=== PATIENT | female | born 1970 | race American Indian/Alaskan Native ===

== ENCOUNTER 2020-09-12 09:46 | Observation (INO) | payer OTHER ==
[2020-09-12] MEDS ORDERED: SODIUM CHLORIDE 0.9% 500 ML 500 ML IV NR (09:56)
[2020-09-12] MEDS ORDERED: ACETAMINOPHEN 325 MG TAB PO PRN (11:00)
[2020-09-12] MEDS ORDERED: diphenhydrAMINE 25 MG CAP PO PRN (11:00)
[2020-09-12] MEDS ORDERED: DOCUSATE SODIUM 100 MG CAP PO PRN (11:00)
--- NOTE | 2020-09-12 11:21 | History and Physical Report ---
History of Present Illness Date of examination: 09/12/20 Date of admission: 09/12/20 10:25 Chief complaint: low blood count History of present illness: Pt is a 49 y/o female with long h/o anemia, menorrhagia and fibroids that presented to preop evaluation for scheduled lavh in one week. Pt noted to have hgb of 4.9. Pt has had hbg as low as 5(2013) and 2(22986 for which she was also admitted and got transfusion of several units of blood. Pt was to have surgery in 2017 and was lost to f/u in my office and was scheduled in [id number] and again was lost to f/u with dimethylaniline sulfator operator provider at the time.She is not currently bleeding as lmp was 2 weeks ago. Pt today does c/o having some mild dizziness but denies chest, sob, palpitations, fevers or chills. She is admitted for transfusion of 3 units of prbc in preparation for procedure on next week. Again I d/w risk of surgery on next week including but not limited to injury to bladder, bowel, ureter, ovaries, risk for addtional transfusion, infection need for abdominal hysterectomy vial ex lap. She expressed understanding and all questions were addressed and answered. Consents to be signed and placed on the chart. PAPERHANGER History Uterine Surgery (not C/S): negative Operations: positive Endometrial Ablation: Hospitalizations: negative Anesthesia Complications: negative Abnormal PAP: negative Uterine Anomaly: negative NICK Exposure: negative Infertility: negative Infection History HIV Risk Eval: no Personal hx. of genital herpes: no Partner hx. of genital herpes: no Hx of STD: None Active Medications (reviewed today): MULTI VITAMINS () NORVASC TABLET (AMLODIPINE BESYLATE TABS) Current Allergies (reviewed today): No known allergies Past Medical History: Reviewed history from 02/09/2018 and no changes required: Anemia Hypertension Hodgskins lymohoma Past Surgical History: Reviewed history from 02/09/2018 and no changes required: positive Endometrial Ablation: Risk Factors: Smoked Tobacco Use: Never smoker Smokeless Tobacco Use: Never Drug use: no HIV high-risk behavior: no Exercise: no Seatbelt use: 100 % Past History Past Medical History: heart disease (fer out put failure due to severe anemia in 2016), hypertension, blood transfusion, other (lymphoma- many years of remission) Past Surgical History: other (ablation) PAPERHANGER History: other (see hpi) Family/Genetic History: other (see hpi) Social history: no significant social history, Medications and Allergies Allergies Allergy/AdvReac Type Severity Reaction Status Date / Time No Known Allergies Allergy Unverified 09/08/20 12:54 Home Medications Medication Instructions Recorded Confirmed Last Taken Type NIFEdipine [Adalat cc] 90 mg PO DAILY 09/08/20 09/08/20 Unknown History Active Meds: Active Medications Acetaminophen (Tylenol) 650 mg PO Q6H PRN PRN Reason: Pain MILD(1-3)/Fever >100.5/PARKER Diphenhydramine HCl (Benadryl) 25 mg PO Q6H PRN PRN Reason: Itching Docusate Sodium (Colace) 100 mg PO Q12H PRN PRN Reason: Constipation Sodium Chloride (Nacl 0.9% 500 Ml) 500 mls @ 0 mls/hr IV ONCE NR Stop: 09/12/20 23:00 Review of Systems All systems: negative - Vital Signs Vital signs: Vital Signs Temp Pulse Resp BP Pulse Ox 98.1 F 102 H 18 133/77 97 09/12/20 10:50 09/12/20 10:50 09/12/20 10:50 09/12/20 10:50 09/12/20 10:50 Temp Pulse Resp BP Pulse Ox 98.1 F 102 H 18 133/77 97 09/12/20 10:50 09/12/20 10:50 09/12/20 10:50 09/12/20 10:50 09/12/20 10:50 - Physical Exam Cardiovascular: Normal S1, Normal S2 Lungs: Positive: Clear to auscultation, Normal air movement Abdomen: Positive: normal appearance, soft. Negative: distention, guarding Genitourinary (Female): Positive: other (deferred as pt not having bleeding at this time) Results All other labs normal. Assessment and Plan - Patient Problems (1) Fibroid uterus Current Visit: Yes Status: Acute Plan to address problem: scheduled for lavh vs jose manuel in one week transfuse at this time and plan for procedure in one week. (2) Menorrhagia with regular cycle Current Visit: Yes Status: Acute Plan to address problem: -no bleeding at this time -LAVH VS JOSE MANUEL scheduled in one week. Will keep scheduled provided pt remains stable and completes transfusion. (3) Anemia Current Visit: No Status: Acute Qualifiers: Anemia type: iron deficiency Plan to address problem: -3 untis of PRBC ordered -h/h after completion (4) HTN (hypertension) Current Visit: No Status: Chronic Qualifiers: Hypertension type: essential hypertension Qualified Code(s): I10 - Essential (primary) hypertension Plan to address problem: -stable -con't po medications (5) History of hodgkin's lymphoma Current Visit: No Status: Chronic Plan to address problem: -stable in remission
[2020-09-13] MEDS ORDERED: NIFEdipine XL 90 MG TAB PO SCH (10:00)
[2020-09-13] MEDS ORDERED: NON-FORMULARY EACH (Nifedipine [Adalat Cc] 90 MG) PO SCH (10:00)
[2020-09-13 10:58] LABS: Hematocrit 26.1 % (30.3-42.9)
--- NOTE | 2020-09-13 11:20 | Event Note ---
Date: 09/13/20 Pt responded well to transfusion. Will d/c home at this time and plan for sx next week.
--- NOTE | 2020-09-13 11:21 | Discharge Summary ---
Providers - Providers Date of Admission: 09/12/20 10:25 Date of discharge: 09/13/20 Attending physician: KENTON SANCHEZ Primary care physician: ARUNLFO REBOLLEDO Hospitalization Reason for admission: other (symptomatic anemia) Procedure: other (blood transfusion) Hospital course: Pt presented to pre Op evaluation in the surgery center and was noted to have hgb of 4.6 and having symptoms of fatigue and dizziness. She got two units of blood and now hgb is 8 and she states she is feeling much better with resolution of her symptoms. Pt will f/u in office on Saturday 09/15 or Tuesday 09/18 for pre Op appointment for scheduled lavh with BS. Plan of care d/w pt as well as her via telephone and both expressed understanding and expressed no questions. Condition at discharge: Good Disposition: DC-01 TO HOME OR SELFCARE - Discharge Diagnoses (1) Fibroid uterus Status: Acute (2) Menorrhagia with regular cycle Status: Acute (3) Anemia Status: Acute Qualifiers: Anemia type: iron deficiency (4) HTN (hypertension) Status: Chronic Qualifiers: Hypertension type: essential hypertension Qualified Code(s): I10 - Essential (primary) hypertension (5) History of hodgkin's lymphoma Status: Chronic Plan - Provider Discharge Summary Additional instructions: [] Smoking cessation referral if applicable(refer to patient education folder for contact #) [] Refer to [facility] Booklet Call your doctor immediately for: * Fever > 100.5 * Heavy vaginal bleeding ( >1 pad per hour) * Severe persistent headache * Shortness of breath * Reddened, hot, painful area to leg or breast * Drainage or odor from incision. * Keep incision clean and dry at all times and follow doctor's instructions regarding bathing/showering - Follow up plan Follow up: ARNULFO REBOLLEDO MD [Primary Care Provider] - 7 Days Forms: [facility] Discharge Summary
[2020-09-13 11:52] VITALS: BP 147/79
== END 2020-09-13 13:00 | disposition home or self-care (01) ==
LOC: UNDOADMIN 09:46 → 3A 09:46 → OB 10:25
PROVIDERS: ADMIT Obstetrics & Gynecology; ATTEND Obstetrics & Gynecology
DX: D25.9 Leiomyoma of uterus, unspecified (principal); N92.0 Excessive and frequent menstruation with regular cycle; D64.9 Anemia, unspecified; I10 Essential (primary) hypertension; I51.9 Heart disease, unspecified; Z85.71 Personal history of Hodgkin lymphoma
CPT/HCPCS: 36415; 36430; 85014; 85018; 86850; 86900; 86901; 86920; G0378; G0379; P9016

== ENCOUNTER 2020-09-26 07:46 | Observation (INO) | payer OTHER ==
[2020-09-12 08:27] LABS: Mean Corpuscular HGB Conc 27 % (30-34); Red Blood Count 3.11 M/mm3 (3.65-5.03)
--- NOTE | 2020-09-12 08:33 | Anesthesia Consultation ---
Anesthesia Consult and Med Hx Date of service: 09/19/20 - Airway Anesthetic Teeth Evaluation: Chipped ROM Head & Neck: Adequate Mental/Hyoid Distance: Adequate Mallampati Class: Class II Intubation Access Assessment: Probably Good - Pre-Operative Health Status ASA Pre-Surgery Classification: ASA2 Proposed Anesthetic Plan: General - Pulmonary Hx Asthma: No (+2FS) COPD: No Hx Pneumonia: No - Cardiovascular System Hx Hypertension: Yes - Central Nervous System Hx Psychiatric Problems: No - Endocrine Hx End Stage Renal Disease: No Hx Liver Disease: No Hx Non-Insulin Dependent Diabetes: No Hx Thyroid Disease: No - Hematic Hx Anemia: Yes - Other Systems Hx Cancer: Yes (Hodgekin's Disease 1989, received chemo and radiation)
[2020-09-12 08:39] LABS: BUN/Creatinine Ratio 11; Blood Urea Nitrogen 9 mg/dL (7-17); Calcium 9.1 mg/dL (8.4-10.2); Hemolysis Index 0
[2020-09-12 08:40] LABS: Hematocrit 17.1 % (30.3-42.9); Hemoglobin 4.6 gm/dl (10.1-14.3); Mean Corpuscular Volume 55 fl (79-97)
[2020-09-12 08:42] LABS: Red Cell Distribution Width 23.2 % (13.2-15.2)
[2020-09-12 09:25] LABS: Basophils % (Manual) 0 % (0.0-1.8); Total Cells Counted 100
[2020-09-12 09:26] LABS: Anisocytosis 2+; Hypochromasia 3+; Platelet Estimate Consistent w Auto; Tear Drop Cells Rare
[2020-09-12 09:37] LABS: Platelet Count 236 K/mm3 (140-440)
--- NOTE | 2020-09-18 09:35 | History and Physical Report ---
History of Present Illness Date of examination: 09/18/20 Date of admission: 09/19/2020 planned dated of surgery Chief complaint: heavy bleeding, fibroids, anemia History of present illness: Visit Type: Pre-Op CC: pre op. History of Present Illness: pt presents for pre op visit: LAVH, bilat salpingectomy........................................................... ............Tabby Ferguson September 18, 2020 9:42 AM Mask, Patient denies fever, cough, shortness of breath and exposure to COVID-19. Pt here for pre op for the above planned procedure due to fibroid, menorrhagia and h/o severe anemia requiring several transfusions most recently on 09/12/2020. Today pt has no bleeding and reports she feels well after the transfusion. She has no chest pain, dizziness, or sob. All risk/benefits/alternatives were d/w pt and questions were addressed and answered . Consents signed and placed on the chart. I d/w pt that while the LAVH is planned a JOSE MANUEL may be needed due to the size of the fibroids. She expressed understanding and questions were addressed and answered. Vital Signs: Patient Profile: 49 Years Old Female Height: 70 inches Weight: 190 pounds BMI: 27.26 Temp: 98.2 degrees F BP sittin / 86 (left arm) Current Method of Contraception: Abstinence Date of Last Pap Smear: 08/15/2020 Past History : 2 Term Births: 2 Living Children: 2 Para: 2 NUTRITION THERAPIST History Uterine Surgery (not C/S): negative Operations: positive Endometrial Ablation: Hospitalizations: negative Anesthesia Complications: negative Abnormal PAP: negative Uterine Anomaly: negative NICK Exposure: negative Infertility: negative Infection History HIV Risk Eval: no Personal hx. of genital herpes: no Partner hx. of genital herpes: no Hx of STD: None Active Medications: MULTI VITAMINS () NORVASC TABLET (AMLODIPINE BESYLATE TABS) Current Allergies: No known allergies Past Medical History: Anemia Hypertension Hodgskins lymohoma high output heart failure-2016 during severe anemia with hgb of 2.7 Family History Summary: Reviewed history and no changes required: 09/18/2020 General Comments - FH: negative Social History: Reviewed history from 02/09/2018 and no changes required: Patient is Smoking History: Patient has never smoked. no e/t/d Risk Factors: Smoked Tobacco Use: Never smoker Smokeless Tobacco Use: Never Drug use: no HIV high-risk behavior: no Alcohol use: no Exercise: no Seatbelt use: 100 % PAP Smear History: Date of Last PAP Smear: 08/15/2020 [[facility] [Labs In-House] Physical Exam Appearance: well developed, well nourished, no acute distress Other Exams Lungs: no rales, rhonchi, or wheezes Heart: S1, S2, no murmur, rub, or gallop Abdomen: soft, non-tender, no masses, bowel sounds normal Extremities: normal alignment, no joint enlargement, crepitus, masses or tenderness; normal tone and strength Genitourinary Exam Comments: deferred until EUA Past History Past Medical History: other (see hpi) Past Surgical History: other (see hpi) Family/Genetic History: other (see hpi) Social history: no significant social history, , full code - Obstetrical History : 2 Hx # Term Pregnancies: 2 Number of Living Children: 2 Medications and Allergies Allergies Allergy/AdvReac Type Severity Reaction Status Date / Time No Known Allergies Allergy Unverified 09/08/20 12:54 Home Medications Medication Instructions Recorded Confirmed Last Taken Type NIFEdipine [Adalat cc] 90 mg PO DAILY 09/08/20 09/08/20 Unknown History Review of Systems All systems: negative - Vital Signs Vital signs: Vital Signs Temp Pulse Resp BP Pulse Ox 98.2 F 116 H 20 140/71 100 09/12/20 08:10 09/12/20 08:10 09/12/20 08:10 09/12/20 08:10 09/12/20 08:10 Temp Pulse Resp BP Pulse Ox 98.2 F 116 H 20 140/71 100 09/12/20 08:10 09/12/20 08:10 09/12/20 08:10 09/12/20 08:10 09/12/20 08:10 - Physical Exam Cardiovascular: Normal S1, Normal S2 Lungs: Positive: Clear to auscultation Abdomen: Positive: normal appearance, soft. Negative: distention, tenderness, guarding Genitourinary (Female): Positive: other (deferred) Results Result Diagrams: 09/12/20 08:15 09/12/20 08:15 All other labs normal. Assessment and Plan - Patient Problems (1) Anemia Status: Acute Qualifiers: Anemia type: iron deficiency (2) Fibroid uterus Status: Acute (3) Menorrhagia with regular cycle Status: Acute Plan to address problem: - admit and prepare for LAVH with BS -Consents signed and placed on the chart. (4) HTN (hypertension) Status: Chronic Qualifiers: Hypertension type: essential hypertension Qualified Code(s): I10 - Essential (primary) hypertension Plan to address problem: -stable on meds (5) History of hodgkin's lymphoma Status: Chronic Plan to address problem: stable and in remission several years
[~2020-09-26 07:46] MED LIST: ACETAMINOPHEN 500 MG TAB PO SCH; GABAPENTIN 300 MG CAP PO NR; MIDAZOLAM 2 MG/2 ML INJ IV NR; SCOPOLAMINE TRANSDERMAL PATCH 72 HR TD NR
[2020-09-26] MEDS ORDERED: VASOPRESSIN 20 UNIT/1 ML INJ ONE (08:48)
[2020-09-26] MEDS ORDERED: BUPIVACAINE/PF (0.5%) 5 MG/1 ML 30 ML VIAL INFILTRATI ONE ×3 (08:48→13:49)
[2020-09-26] MEDS ORDERED: SODIUM CHLORIDE 0.9% 100 ML ONE (08:48)
[2020-09-26] MEDS ORDERED: HYDROmorphone 1 MG/1 ML INJ IV PRN (08:52)
--- NOTE | 2020-09-26 08:53 | Anesthesia Day of Surgery ---
Anesthesia Day of Surgery - Day of Surgery Patient Examined: Yes Patient H&P Reviewed: Yes Patient is NPO: Yes
[2020-09-26] MEDS: LACTATED RINGERS 1,000 ML IV SCH ×2 (09:05→22:48)
[2020-09-26 09:06] LABS: Mean Corpuscular HGB Conc 29 % (30-34); Red Blood Count 4.25 M/mm3 (3.65-5.03)
[2020-09-26 09:07] LABS: Hematocrit 26.8 % (30.3-42.9); Hemoglobin 7.8 gm/dl (10.1-14.3); Mean Corpuscular Volume 63 fl (79-97)
[2020-09-26 09:08] LABS: Platelet Count 254 K/mm3 (140-440); Red Cell Distribution Width 32.7 % (13.2-15.2)
[2020-09-26] MEDS ORDERED: PHENYLEPHRINE/NS 1,000 MCG/10 ML SYRINGE (OR USE) IV ONE (10:40)
[2020-09-26] MEDS ORDERED: ONDANSETRON 4 MG/2 ML INJ ONE (10:40)
[2020-09-26] MEDS ORDERED: LIDOCAINE PF 100 MG/5 ML (CARDIAC SYRINGE) IV ONE (10:40)
[2020-09-26] MEDS ORDERED: ePHEDrine SULFATE 50 MG/1 ML INJ ONE (10:41)
[2020-09-26] MEDS ORDERED: fentaNYL 100 MCG/2 ML INJ ONE (10:41)
[2020-09-26] MEDS ORDERED: propofoL 200 MG/20 ML VIAL IV ONE (10:41)
[2020-09-26] MEDS ORDERED: NEOSTIGMINE 10MG/10 ML INJ MDV ONE (10:42)
[2020-09-26] MEDS ORDERED: dexAMETHasone 20 MG/5 ML VIAL ONE (10:42)
[2020-09-26] MEDS ORDERED: GLYCOPYRROLATE 0.4 MG/2 ML INJ ONE ×2 (10:42→13:37)
[2020-09-26] MEDS ORDERED: SUCCINYLCHOLINE CHLORIDE 200 MG/10 ML INJ MDV ONE (10:42)
[2020-09-26] MEDS ORDERED: ceFAZolin/STERILE WATER 2 GM/20 ML SYRINGE IV NR (12:30)
[2020-09-26] MEDS ORDERED: SODIUM CHLORIDE 0.9% IRRIG SOLN 2000 ML IR ONE (13:48)
[2020-09-26] MEDS ORDERED: VASOPRESSIN 20 UNIT/1 ML INJ IV ONE (13:49)
[2020-09-26] MEDS ORDERED: SODIUM CHLORIDE 0.9% 100 ML IVPB IV ONE (13:50)
[2020-09-26] MEDS ORDERED: METHYLENE BLUE 50 MG/10 ML AMP ONE (15:03)
[2020-09-26] MEDS ORDERED: HYDROmorphone 1 MG/1 ML INJ ONE (16:27)
[2020-09-26] MEDS ORDERED: ceFAZolin 1 GM VIAL ONE (16:29)
[2020-09-26] MEDS ORDERED: ONDANSETRON 4 MG/2 ML INJ IV PRN (17:09)
[2020-09-26] MEDS ORDERED: MORPHINE 4 MG/1 ML INJ IV PRN (17:09)
[2020-09-26] MEDS ORDERED: KETOROLAC 30 MG/1 ML INJ IV PRN (17:09)
[2020-09-26] MEDS ORDERED: ACETAMINOPHEN 500 MG TAB PO PRN (17:09)
[2020-09-26] MEDS ORDERED: HYDROcodone/ACETAMINOPHEN 5-325 MG TAB PO PRN (17:09)
--- NOTE | 2020-09-26 17:09 | Operative Report ---
Operative Report Operative Report: Date of procedure: 09/26/2020 Pre-operative diagnosis: Menorrhagia Symptomatic anemia Uterine fibroids Post-operative diagnosis: Same Procedure name(s): Laparoscopic assisted vaginal hysterectomy Bilateral salpingectomy Surgeon: Fabienne Palma MD Design Technician: Dr. Patel Anesthesia: General endotracheal anesthesia EBL: 600 mL Urine output: 1 L of light blood-tinged fluid Fluids: 1700 mL Findings: Globular leiomyomatous uterus with several uterine fibroids noted approximately 3 cm pedunculated fibroid Approximately 2 cm simple cyst on the right ovary Otherwise normal ovaries bilaterally normal vagina and cervix Indications: [] Procedure: Patient was taken to the operating room where she was placed under general endotracheal anesthesia. She was then prepped and draped in sterile fashion. It was at this point that the large Entegrion uterine manipulator was placed inside of the uterus after the uterus was sounded to approximately 12 cm. Hauser catheter was also placed at this time. Attention was then turned to the umbilicus in which a supraumbilical incision was made. Under direct visu alization the 5 mm trocar was placed inside the peritoneum the peritoneum was then insufflated. As at this point that the laparoscopic portion of the procedure was performed. 1lateral 5 mm port and 1 8mm midline port were also placed under direct visualization. Using the tripolar instrument the upper pedicles were cauterized and transected to the including round ligament with excellent hemostasis noted bilaterally. Prior to releasing the upper pedicle on the left side patient was noted to have a fibroid in the broad ligament. This fibroid was isolated and dissected and removed with excellent hemostasis noted. The 8 mm port was then extended to allow the placement of the Endo Catch bag. The fibroid was placed inside the Endo Catch bag and removed from the abdominal cavity. Attention was then turned vaginally. A weighted speculum was placed into the vagina and the cervix was grasped with a single-tooth tenaculum 2. The cervix was then injected circumferentially with Pitressin. The cervix was then circumferentially incised with the scalpel and the bladder dissected off of the pubovesical cervical fascia anteriorly with a sponge stick and Metzenbaum scissors. The same procedure was performed posteriorly and the posterior cul-de-sac was entered into sharply without difficulty. At this point a Roger Clamp was placed over the uterosacral ligaments on either side. These were then transected and suture ligated with 0 Vicryl. Hemostasis was assured. The cardinal ligaments were then clamped on both sides transected and suture ligated in similar fashion. The uterine arteries were then serially clamped with Roger clamps transected and suture ligated on both sides. Excellent hemostasis was visualized. After it was clear that the uterus had been comp letely from all pedicles the uterus was removed vaginally intact with cervix intact. The vaginal cuff angles were closed with figure of 8 stitches of 0 Vicryl on both sides. The peritoneum was incorporated in the stitching of the vaginal cuff. A series of interrupted figure of 8 sutures using 0 Vicryl were used to close the entire vaginal cuff. Excellent hemostasis was noted. The vagina was then irrigated copiously. Attention was then turned laparoscopically at which time. Again all pedicles were noted to be hemostatic. All instruments were then removed from the abdomen and the vagina. All gas was released from the abdomen. The abdominal incisions were closed using 4-0 Monocryl. All of the abdominal incisions were injected with Marcaine without epi. Patient tolerated the procedure well sponge lap and needle counts were all correct 3 the patient was taken to the recovery room awake and in stable condition.
[2020-09-26] MEDS ORDERED: SODIUM CHLORIDE 0.9% 1000 ML 1,000 ML ONE (17:12)
--- NOTE | 2020-09-26 18:06 | Post Anesthesia Evaluation ---
- Post Anesthesia Evaluation Patient Participated: Yes Airway Patent: Yes Stable Respiratory Function: Yes Nausea/Vomiting: No Temp > 96.8F: Yes Pain Manageable: Yes Adequeate Hydration: Yes Anesthesia Complications: No
[2020-09-27] MEDS: ceFAZolin/NS 1 GM/50 ML 1 GM/50 ML BAG IV SCH ×2 (00:18→08:57)
[2020-09-27 07:33] LABS: Hematocrit 30.9 % (30.3-42.9); Hemoglobin 9.6 gm/dl (10.1-14.3)
[2020-09-27] MEDS ORDERED: IBUPROFEN 800 MG TAB PO PRN (08:00)
[2020-09-27] MEDS ORDERED: NIFEdipine XL 90 MG TAB PO SCH (10:00)
--- NOTE | 2020-09-27 12:23 | Progress Note ---
Assessment and Plan - Patient Problems (1) Anemia Current Visit: No Status: Acute Qualifiers: Anemia type: iron deficiency (2) Fibroid uterus Current Visit: No Status: Acute (3) Menorrhagia with regular cycle Current Visit: No Status: Acute (4) HTN (hypertension) Current Visit: No Status: Chronic Qualifiers: Hypertension type: essential hypertension Qualified Code(s): I10 - Essentia l (primary) hypertension (5) History of hodgkin's lymphoma Current Visit: No Status: Chronic (6) S/P laparoscopic assisted vaginal hysterectomy (LAVH) Current Visit: Yes Status: Acute Plan to address problem: -doing well -d/c home today-f/u in office next week (7) Status post bilateral salpingectomy Current Visit: Yes Status: Acute Subjective - Subjective Date of service: 09/27/20 Principal diagnosis: POD#1 S/P LAVH WITH BS Interval history: Pt doing well. desires d/c to home today. Findings of sx d/w pt and questions were addressed and answered. Patient reports: appetite normal, voiding normally, pain well controlled, ambulating normally, no dizzy ambulation, no nauseated Objective - Vital Signs Latest vital signs: Vital Signs Temp Pulse Resp BP BP Pulse Ox 09/27/20 08:35 98.2 F 95 H 20 131/75 09/27/20 04:50 98.6 F 87 20 158/93 99 09/27/20 01:07 87 20 154/86 95 09/27/20 00:08 98.8 F 90 20 160/99 99 09/26/20 18:15 97.9 F 83 18 147/82 96 09/26/20 18:00 83 16 140/83 96 09/26/20 17:45 97.8 F 84 16 143/80 96 09/26/20 17:30 78 16 134/75 96 09/26/20 17:25 79 16 129/77 96 09/26/20 17:20 78 16 127/75 97 09/26/20 17:14 97.2 F L 92 H 16 129/83 97 Intake and Output 09/26/20 09/27/20 09/27/20 22:59 06:59 14:59 Intake Total 1700 170 240 Output Total 1980 790 Balance -280 -620 240 Intake: IV 1700 50 ANCEF/NS 1 GM/50 ML 1 gm 50 In 50 ml @ 100 mls/hr IV Q8H ASHLY Rx#:[id number] Lactated Ringers 1,000 ml 1000 @ 100 mls/hr IV DIRECT ASHLY Rx#:[id number] Oral 120 240 Output: Urine 1980 790 Uretheral (Hauser) 780 790 Other: Total, Intake Amount 120 240 Voiding Method Toilet # Voids Void 1 - Exam Cardiovascular: Present: Normal S1, Normal S2 Lungs: Present: Clear to auscultation, Normal air movement Abdomen: Present: normal appearance, soft, normal bowel sounds. Absent: distention, tenderness, guarding Extremities: Present: normal. Absent: tenderness, edema Incision: Present: normal, dry, intact - Labs Labs: Abnormal lab results 09/26/20 09/27/20 Range/Units 08:35 06:56 Hgb 9.6 L (10.1-14.3) gm/dl Crossmatch See Detail
--- NOTE | 2020-09-27 12:24 | Discharge Summary ---
Providers - Providers Date of Admission: 09/26/20 17:09 Date of discharge: 09/27/20 Attending physician: GLENDY SERRANO Primary care physician: ARNULFO REBOLLEDO Hospitalization Reason for admission: other (LAVH with BS) Procedure: other (LAVH WITH BS) Procedure details: SEE OPERATIVE REPORT Incision: normal, dry, intact, other (OPEN TO AIR) Hospital course: Pt admitted for above stated procedures. She had post op course that was not complicated. Pt to be d/c home today with f/u in office in one we. Condition at discharge: Good Disposition: DC-01 TO HOME OR SELFCARE - Discharge Diagnoses (1) Anemia Status: Acute Qualifiers: Anemia type: iron deficiency (2) Fibroid uterus Status: Acute (3) Menorrhagia with regular cycle Status: Acute (4) HTN (hypertension) Status: Chronic Qualifiers: Hypertension type: essential hypertension Qualified Code(s): I10 - Essential (primary) hypertension (5) History of hodgkin's lymphoma Status: Chronic (6) S/P laparoscopic assisted vaginal hysterectomy (LAVH) Status: Acute (7) Status post bilateral salpingectomy Status: Acute Plan - Discharge Medications Prescriptions: Docusate Sodium [Colace] 100 mg PO BID PRN #60 capsule PRN Reason: Constipation Ferrous Sulfate [Feosol 325 MG tab] 325 mg PO QDAY #60 tablet Ibuprofen [Motrin 800 MG tab] 800 mg PO Q8HR PRN #30 tablet PRN Reason: Pain, Moderate (4-6) oxyCODONE /ACETAMINOPHEN [Percocet 5/325] 1 tab PO Q4HR #30 tab - Provider Discharge Summary Activity: routine, no sex for 6 weeks, no heavy lifting 4 weeks Diet: routine Instructions: routine Additional instructions: [] Smoking cessation referral if applicable(refer to patient education folder for contact #) [] Refer to [facility] Booklet Call your doctor immediately for: * Fever > 100.5 * Heavy vaginal bleeding ( >1 pad per hour) * Severe persistent headache * Shortness of breath * Reddened, hot, painful area to leg or breast * Drainage or odor from incision. * Keep incision clean and dry at all times and follow doctor's instructions regarding bathing/showering - Follow up plan Follow up: ARNULFO REBOLLEDO MD [Primary Care Provider] - 7 Days GLENDY SERRANO MD [Staff Physician] - 7 Days
[2020-09-27 13:26] VITALS: BP 134/78
== END 2020-09-27 13:50 | disposition home or self-care (01) ==
LOC: OR 07:46 → OB 17:09
PROVIDERS: ADMIT Obstetrics & Gynecology; ATTEND Obstetrics & Gynecology
DX: N92.0 Excessive and frequent menstruation with regular cycle (principal); D25.9 Leiomyoma of uterus, unspecified; D64.9 Anemia, unspecified; I11.0 Hypertensive heart disease with heart failure; I50.9 Heart failure, unspecified; C81.90 Hodgkin lymphoma, unspecified, unspecified site
CPT/HCPCS: 36415; 58554; 80048; 81025; 85007; 85014; 85018; 85025; 85027; 86850; 86900; 86901; 86920; 88302; 88307; 96361; 96365; 96366; A4217; G0378; J0330; J0690; J1100; J1170; J2001; J2250; J2405; J2704; J2710; J3010; J7030; J7120; P9016; J2370; Q9968

== ENCOUNTER 2022-02-01 13:08 | Inpatient (IN) | payer BC, OTHER ==
--- NOTE | 2022-02-01 13:36 | Event Note ---
ED Screening Note Date of service: 02/01/22 Time: 13:33 ED Screening Note: 51-year-old black female who was recently diagnosed in the last month with CHF presents to the emergency department with worsening swelling and shortness of breath. She states that she takes Lasix at home and dose was increased a few days ago by her primary care provider but she has not had any improvement. She presents with swelling to bilateral lower extremities and abdomen along with increasing shortness of breath and intermittent chest pain. She states that she is scheduled to see [facility] for management of CHF but has not had her first appointment there yet This initial assessment/diagnostic orders/clinical plan/treatment(s) is/are subject to change based on patients health status, clinical progression and re- assessment by fellow clinical providers in the ED. Further treatment and workup at subsequent clinical providers discretion. Patient/guardian urged not to elope from the ED as their condition may be serious if not clinically assessed and managed. Initial orders include: CBC, CMP, BNP, troponin, chest x-ray, and EKG
--- NOTE | 2022-02-01 14:07 | XRay Report ---
CHEST 2 VIEWS INDICATION: sob. COMPARISON: 04/25/2016 FINDINGS: Support devices: None. Heart: Mild cardiomegaly. Lungs/pleura: No acute air space or interstitial disease. No pleural effusion or pneumothorax. Additional findings: Mild thoracolumbar scoliosis. IMPRESSION: Mild cardiomegaly. Lungs clear. Signer Name: William Schaefer Jr, MD Signed: 02/01/2022 2:03 PM Workstation Name: [id number]
[2022-02-01 14:47] LABS: Basophils # (Auto) 0.1 K/mm3 (0.0-0.1); Basophils % (Auto) 1.9 % (0.0-1.8); Eosinophils # (Auto) 0.1 K/mm3 (0.0-0.4); Eosinophils % (Auto) 1.9 % (0.0-4.3); Lymphocytes # (Auto) 1.6 K/mm3 (1.2-5.4); Mean Corpuscular HGB Conc 30 % (30-34); Mean Corpuscular Volume 79 fl (79-97); Monocytes # (Auto) 0.8 K/mm3 (0.0-0.8); Monocytes % (Auto) 12.4 % (0.0-7.3); Platelet Count 220 K/mm3 (140-440); Red Blood Count 5.01 M/mm3 (3.65-5.03)
[2022-02-01 15:09] LABS: Alanine Aminotransferase 76 units/L (7-56); Albumin 3.2 g/dL (3.9-5); BUN/Creatinine Ratio 15; Blood Urea Nitrogen 23 mg/dL (7-17); Calcium 9.2 mg/dL (8.4-10.2); Hematocrit 39.4 % (30.3-42.9); Hemoglobin 11.9 gm/dl (10.1-14.3); Hemolysis Index 18; Red Cell Distribution Width 22.4 % (13.2-15.2)
[2022-02-01] MEDS ORDERED: FUROSEMIDE 40 MG/4 ML INJ IV ONE (16:12)
--- NOTE | 2022-02-01 16:22 | Emergency Department Report ---
HPI - General Chief Complaint: Dyspnea/Respdistress Time Seen by Provider: 02/01/22 16:01 - HPI HPI: Reassessment 6 The patient is a 51-year-old female present with a chief complaint of shortness of breath/dyspnea on exertion. Patient has a history of CHF and states for the past month she has had worsening shortness of breath and dyspnea on exertion. Patient denies having chest pain but states she has had bilateral lower extremity edema for the same amount of time. 1 week ago the patient states she saw her primary physician who increased her Lasix from 40 mg daily to twice daily. Patient states she has been taking her Lasix as prescribed but continues to have dyspnea on exertion. The patient states she had to reschedule her first appointment with her manager orange at [facility] and has not seen them yet ED Past Medical Hx - Past Medical History Hx Hypertension: Yes Hx Congestive Heart Failure: Yes Additional medical history: hodgkin disease-endometrois anemia - Surgical History Additional Surgical History: Hysterectomy - Family History Family history: no significant - Social History Smoking Status: Never Smoker Substance Use Type: None (Denies illicit drug use) - Medications Home Medications: Home Medications Medication Instructions Recorded Confirmed Last Taken Type NIFEdipine [Adalat cc] 90 mg PO DAILY 09/08/20 09/26/20 09/26/20 05:30 History Docusate Sodium [Colace] 100 mg PO BID PRN #60 capsule 09/26/20 Unknown Rx Ferrous Sulfate [Feosol 325 MG tab] 325 mg PO QDAY #60 tablet 09/26/20 Unknown Rx Ibuprofen [Motrin 800 MG tab] 800 mg PO Q8HR PRN #30 tablet 09/26/20 Unknown Rx oxyCODONE /ACETAMINOPHEN [Percocet 1 tab PO Q4HR #30 tab 09/26/20 Unknown Rx 5/325] ED Review of Systems ROS: Stated complaint: SOB/FLUID IN FEET/KNEES/LEGS Other details as noted in HPI Constitutional: no symptoms reported Eyes: denies: eye pain ENT: denies: throat pain Respiratory: shortness of breath, SOB with exertion Cardiovascular: dyspnea on exertion. denies: chest pain Endocrine: no symptoms reported Genitourinary: denies: dysuria Musculoskeletal: denies: back pain Neurological: denies: headache Hematological/Lymphatic: other (Bilateral lower extremity edema) Physical Exam - Physical Exam Vital Signs: Vital Signs 02/01/22 13:17 Temperature 98.7 F Pulse Rate 90 Respiratory 20 Rate O2 Sat by Pulse 96 Oximetry Physical Exam: GENERAL: The patient is well-developed well-nourished female lying in chair not appearing to be in acute distress. [] HEENT: Normocephalic. Atraumatic. Extraocular motions are intact. Patient has moist mucous membranes. NECK: Supple. Trachea midline CHEST/LUNGS: Clear to auscultation. There is no respiratory distress noted. HEART/CARDIOVASCULAR: Regular. There is no tachycardia. There is no gallop rub or murmur. ABDOMEN: Abdomen is soft, nontender. Patient has normal bowel sounds. There is no abdominal distention. SKIN: There is no rash. There is 2+ bilateral lower extremity pitting edema. There is no diaphoresis. NEURO: The patient is awake, alert, and oriented. The patient is cooperative. The patient has no focal neurologic deficits. The patient has normal speech. GCS 15 MUSCULOSKELETAL:There is no evidence of acute injury. ED Course Vital Signs 02/01/22 13:17 Temperature 98.7 F Pulse Rate 90 Respiratory 20 Rate O2 Sat by Pulse 96 Oximetry ED Medical Decision Making - Lab Data Result diagrams: 02/01/22 14:02 02/01/22 14:02 Laboratory Tests 02/01/22 02/01/22 14:02 14:02 WBC 6.3 RBC 5.01 Hgb 11.9 Hct 39.4 MCV 79 MCH 24 L MCHC 30 RDW 22.4 H Plt Count 220 Lymph % (Auto) 26.0 [place] % (Auto) 12.4 H Eos % (Auto) 1.9 Baso % (Auto) 1.9 H Lymph # (Auto) 1.6 [place] # (Auto) 0.8 Eos # (Auto) 0.1 Baso # (Auto) 0.1 Seg Neutrophils % 57.8 Seg Neutrophils # 3.6 Sodium 143 Potassium 3.6 Chloride 104.9 Carbon Dioxide 25 Anion Gap 17 BUN 23 H Creatinine 1.5 H Estimated GFR 44 BUN/Creatinine Ratio 15 Glucose 109 H Calcium 9.2 Total Bilirubin 0.90 AST 65 H ALT 76 H Alkaline Phosphatase 119 Troponin T < 0.010 NT-Pro-B Natriuret Pep 4482 H Total Protein 5.7 L Albumin 3.2 L Albumin/Globulin Ratio 1.3 - EKG Data -: EKG Interpreted by Hi EKG shows normal: sinus rhythm, axis Rate: normal (90 bpm) - EKG Data Interpretation: nonspecific ST-T wave dina (Flattened T waves inferiorly) - Radiology Data Radiology results: report reviewed (Chest x-ray), image reviewed (Chest x-ray) interpreted by me: Chest [id number]. No focal infiltrates, no pneumothorax [facility] [address] [place] [address] XRay Report Signed Patient: ZORA MORALES MR#: [id number] : 1970 Acct:[id number] Age/Sex: 51 / F ADM Date: 02/01/22 Loc: ED Attendheena orourke Dr: Ordering Physician: JUAN DAVID ADAMES Date of Service: 02/01/22 Procedure(s): XR chest routine 2V Accession Number(s): [id number] cc: JUAN DAVID ADAMES Fluoro Time In Minutes: CHEST 2 VIEWS INDICATION: sob. COMPARISON: 04/25/2016 FINDINGS: Support devices: None. Heart: Mild cardiomegaly. Lungs/pleura: No acute air space or interstitial disease. No pleural effusion or pneumothorax. Additional findings: Mild thoracolumbar scoliosis. IMPRESSION: Mild cardiomegaly. Lungs clear. Signer Name: William Schaefer Jr, MD Signed: 02/01/2022 2:03 PM Workstation Name: [id number] Transcribed By: TTR Dictated By: WILLIAM SCHAEFER JR, MD Electronically Authenticated By: WILLIAM SCHAEFER JR, MD Signed Date/Time: 02/01/22 1403 DD/ 1401 TD/TT: - Differential Diagnosis CHF exacerbation Critical care attestation.: If time is entered above; I have spent that time in minutes in the direct care of this critically ill patient, excluding procedure time. ED Disposition Clinical Impression: CHF exacerbation, Failure of outpatient treatment Disposition: ADMITTED INPATIENT Is pt being admited?: Yes Does the pt Need Aspirin: No Condition: Fair Referrals: ARNULFO REBOLLEDO MD [Primary Care Provider] - 3-5 Days Time of Disposition: 16:40 (Hospitalist notified (Dr. Easley))
[2022-02-01] MEDS ORDERED: HYDROmorphone 1 MG/1 ML INJ IV PRN (16:41)
[2022-02-01] MEDS ORDERED: ALBUTEROL 2.5 MG/3 ML NEBU IH PRN (16:41)
[2022-02-01] MEDS ORDERED: ONDANSETRON 4 MG/2 ML INJ IV PRN (16:41)
[2022-02-01] MEDS ORDERED: ACETAMINOPHEN 325 MG TAB PO PRN (16:41)
--- NOTE | 2022-02-01 16:41 | History and Physical Report ---
History of Present Illness Chief complaint: I cannot breathe and my legs are swollen History of present illness: 51 YO Female with HTN, CHF, Hodgkins Disease, Anemia of Chronic Disease presents ED for evaluation. Patient reports "it is hard to breathe and I am swollen". Patient states that she has experienced shortness of breath, and leg edema over the past 2 weeks with worsening symptoms over the past 1 week. P atient acknowledges orthopnea, paroxysmal nocturnal dyspnea, decreased exercise tolerance, dyspnea on exertion, as well as dyspnea at rest, as well as subjective weight gain over the past 1 week. Patient was seen and evaluated by her primary care physician and treated with diuretic therapy. Patient states that she has experienced worsening symptoms while compliant with therapy. Patient failed outpatient therapy. Patient transported to [facility] via private vehicle for further care and evaluation of the aforementioned symptoms. The patient was seen and evaluated emergency department. All lab and imaging studies reviewed. Patient found to have a pulse oximetry of 89% on room air with exertion which is consistent with acute hypoxemic respiratory failure. Patient also found to have clinical symptoms consistent with CHF decompensation. Patient placed on noninvasive positive pressure ventilation and admitted to telemetry and initiated on CHF protocol. Patient has fever, chills, chest pain, palpitation, skin rash, recent contact, known exposure to COVID-19. Prior admission on 04/25/2016 reviewed. All medication listed at time of admission has been reconciled. Advanced care planning conducted in ED. Cardiology team consulted in ED. Past History Past Medical History: cancer, heart failure, other (See HPI) Past Surgical History: hysterectomy Social history: , lives with family. denies: smoking, alcohol abuse, prescription drug abuse Family history: diabetes, hypertension Medications and Allergies Allergies Allergy/AdvReac Type Severity Reaction Status Date / Time No Known Allergies Allergy Unverified 09/08/20 12:54 Home Medications Medication Instructions Recorded Confirmed Last Taken Type NIFEdipine [Adalat cc] 90 mg PO DAILY 09/08/20 09/26/20 09/26/20 05:30 History Docusate Sodium [Colace] 100 mg PO BID PRN #60 capsule 09/26/20 Unknown Rx Ferrous Sulfate [Feosol 325 MG tab] 325 mg PO QDAY #60 tablet 09/26/20 Unknown Rx Ibuprofen [Motrin 800 MG tab] 800 mg PO Q8HR PRN #30 tablet 09/26/20 Unknown Rx oxyCODONE /ACETAMINOPHEN [Percocet 1 tab PO Q4HR #30 tab 09/26/20 Unknown Rx 5/325] Review of Systems Constitutional: weight gain, no fever, no chills, no sweats Exam - Constitutional Vitals: Temp Pulse Resp BP Pulse Ox 98.7 F 90 20 96 02/01/22 13:17 02/01/22 13:17 02/01/22 13:17 02/01/22 13:17 General appearance: Present: mild distress - EENT Eyes: Present: PERRL ENT: hearing intact, clear oral mucosa - Neck Neck: Present: supple, normal ROM - Respiratory Respiratory effort: labored, accessory muscle use Respiratory: bilateral: diminished, rales - Cardiovascular Heart Sounds: Present: S1 & S2. Absent: rub, click - Extremities Extremities: pulses symmetrical Extremity abnormal: edema Peripheral Pulses: within normal limits - Abdominal General gastrointestinal: Present: soft, non-tender, non-distended, normal bowel sounds Female genitourinary: Present: normal - Integumentary Integumentary: Present: clear, warm, dry - Musculoskeletal Musculoskeletal: gait normal, strength equal bilaterally - Psychiatric Psychiatric: appropriate mood/affect, intact judgment & insight - Neurologic Neurologic: CNII-XII intact, moves all extremities HEART Score - HEART Score Troponin: Troponin T < 0.010 ng/mL (0.00-0.029) 02/01/22 14:02 Results - Labs CBC & Chem 7: 02/01/22 14:02 02/01/22 14:02 Labs: Abnormal lab results 02/01/22 02/01/22 Range/Units 14:02 14:02 MCH 24 L (28-32) pg RDW 22.4 H (13.2-15.2) % [place] % (Auto) 12.4 H (0.0-7.3) % Baso % (Auto) 1.9 H (0.0-1.8) % BUN 23 H (7-17) mg/dL Creatinine 1.5 H (0.6-1.2) mg/dL Glucose 109 H (65-100) mg/dL AST 65 H (5-40) units/L ALT 76 H (7-56) units/L NT-Pro-B Natriuret Pep 4482 H (0-900) pg/mL Total Protein 5.7 L (6.3-8.2) g/dL Albumin 3.2 L (3.9-5) g/dL Assessment and Plan - Patient Problems (1) Acute hypoxemic respiratory failure Current Visit: Yes Status: Acute Plan to address problem: Supplemental oxygen, pulse oximetry, nebulizer therapy, chest x-ray, noninvasive positive pressure ventilation. Supportive care, pulmonary toilet. (2) CHF exacerbation Current Visit: Yes Status: Acute Qualifiers: Heart failure type: systolic Qualified Code(s): I50.23 - Acute on chronic systolic (congestive) heart failure Plan to address problem: Strict I's/O, monitor urine output every shift, daily weight, afterload reduction, blood pressure control, supplemental oxygen, echocardiogram ordered and pending at time of admission. (3) Obesity hypoventilation syndrome Current Visit: Yes Status: Acute Plan to address problem: Balanced diet, increase physical activity discharge, outpatient pulmonary follow-up for sleep study. (4) Symptomatic anemia Current Visit: No Status: Acute Plan to address problem: Hemoglobin stable at this time. No transfusion indicated. Supportive care. (5) HTN (hypertension) Current Visit: No Status: Chronic Qualifiers: Hypertension type: primary hypertension Qualified Code(s): I10 - Essential (primary) hypertension Plan to address problem: Monitor blood pressure every shift, continue medical management. (6) History of hodgkin's lymphoma Current Visit: No Status: Chronic Plan to address problem: Outpatient oncology follow-up. Supportive care. (7) DVT prophylaxis Current Visit: Yes Status: Acute Plan to address problem: SCD to bilateral lower extremities while in bed, patient is ambulatory. (8) Advance care planning Current Visit: Yes Status: Acute Plan to address problem: Disease education done, care plan discussed, diagnoses discussed, prognosis discussed, patient is full code. Patient knowledges understanding and agreement with care plan, +30 minutes.
[2022-02-01] MEDS ORDERED: DOCUSATE SODIUM 100 MG CAP PO PRN (16:43)
[2022-02-01] MEDS: FUROSEMIDE 40 MG/4 ML INJ IV SCH (19:56)
[2022-02-01] MEDS: amLODIPine 5 MG TAB PO SCH (23:24)
[2022-02-01] MEDS: METOPROLOL TARTRATE 25 MG TAB PO SCH (23:25)
[2022-02-02] MEDS: FUROSEMIDE 40 MG/4 ML INJ IV SCH ×2 (05:35→17:13)
[2022-02-02 05:40] LABS: Calcium 8.9 mg/dL (8.4-10.2)
[2022-02-02] MEDS: VALSARTAN 160MG TAB PO SCH (06:44)
[2022-02-02] MEDS: METOPROLOL TARTRATE 25 MG TAB PO SCH (08:27)
[2022-02-02] MEDS: oxyCODONE /ACETAMINOPHEN 5-325MG TAB PO PRN (08:27)
[2022-02-02] MEDS: FERROUS SULFATE 325 MG TAB PO SCH (10:13)
[2022-02-02] MEDS: amLODIPine 5 MG TAB PO SCH (10:13)
--- NOTE | 2022-02-02 10:31 | Progress Note ---
Subjective Date of service: 02/02/22 Interval history: CONSULT DICTATED CHF [facility]. HTN POSSIBLE MURMUR PLAN: CHECK ECHO,,ADJUST Tx Objective Vital Signs Temp Pulse Resp BP BP Pulse Ox 02/02/22 09:17 93 02/02/22 08:46 98.6 F 86 18 179/121 96 02/02/22 04:03 98.2 F 75 20 178/118 87 02/02/22 00:12 98.6 F 82 20 174/126 98 02/02/22 00:09 92 02/01/22 21:55 96.3 F L 85 22 190/141 100 02/01/22 20:30 84 22 176/127 93 02/01/22 20:16 81 16 177/134 93 02/01/22 20:00 83 20 171/123 96 02/01/22 19:35 98.6 F 82 17 175/123 96 02/01/22 13:17 98.7 F 90 20 96 - Labs and Meds Cardiac Enzymes 02/01/22 Range/Units 14:02 AST 65 H (5-40) units/L CBC 02/01/22 Range/Units 14:02 WBC 6.3 (4.5-11.0) K/mm3 RBC 5.01 (3.65-5.03) M/mm3 Hgb 11.9 (10.1-14.3) gm/dl Hct 39.4 (30.3-42.9) % Plt Count 220 (140-440) K/mm3 Lymph # (Auto) 1.6 (1.2-5.4) K/mm3 [place] # (Auto) 0.8 (0.0-0.8) K/mm3 Eos # (Auto) 0.1 (0.0-0.4) K/mm3 Baso # (Auto) 0.1 (0.0-0.1) K/mm3 Comprehensive Metabolic Panel 02/01/22 02/02/22 Range/Units 14:02 04:45 Sodium 143 144 (137-145) mmol/L Potassium 3.6 3.4 L (3.6-5.0) mmol/L Chloride 104.9 101.7 (98-107) mmol/L Carbon Dioxide 25 31 H (22-30) mmol/L BUN 23 H 23 H (7-17) mg/dL Creatinine 1.5 H 1.5 H (0.6-1.2) mg/dL Glucose 109 H 86 (65-100) mg/dL Calcium 9.2 8.9 (8.4-10.2) mg/dL AST 65 H (5-40) units/L ALT 76 H (7-56) units/L Alkaline Phosphatase 119 (35-129) units/L Total Protein 5.7 L (6.3-8.2) g/dL Albumin 3.2 L (3.9-5) g/dL
--- NOTE | 2022-02-02 11:38 | Progress Note ---
Assessment and Plan Assessment and plan: 51 YO Female with HTN, CHF, Hodgkins Disease, Anemia of Chronic Disease presents ED for evaluation of dyspnea and lower extremity edema x2 weeks. Patient reported orthopnea, PND and decreased exercise tolerance. The patient had a new diagnosis of CHF January 01 of this year and states that she has been compliant with her medications but not with her diet. Patient reported eating various fast foods. The patient reports that she was to have her first appointment with [facility] for next month. The patient was admitted with diagnosis below: Acute hypoxic respiratory failure Acute CHF Obesity hypoventilation syndrome Acute kidney injury Anemia Hypertension Hodgkin's lymphoma 02/02/2022. Continue antihypertensive medications for blood pressure control. Continue hydralazine for afterload reduction. Continue IV Lasix twice daily per cardiology recommendations. Patient with a baseline creatinine of 0.10 September 2020. We will consult nephrology to aid in volume control and assist with acute kidney injury History Interval history: No new issues overnight. Hospitalist Physical - Constitutional Vitals: Temp Pulse Resp BP Pulse Ox 98.6 F 86 18 179/121 93 02/02/22 08:46 02/02/22 08:46 02/02/22 08:46 02/02/22 08:46 02/02/22 09:17 General appearance: Present: mild distress - EENT Eyes: Present: PERRL, EOM intact ENT: hearing intact, clear oral mucosa, dentition normal - Neck Neck: Present: supple, normal ROM - Respiratory Respiratory effort: normal Respiratory: bilateral: CTA - Cardiovascular Rhythm: regular Heart Sounds: Present: S1 & S2. Absent: gallop, rub - Extremities Extremities: no ischemia, No edema, Full ROM - Abdominal General gastrointestinal: soft, non-tender, non-distended, normal bowel sounds - Integumentary Integumentary: Present: clear, warm, dry - Neurologic Neurologic: CNII-XII intact, moves all extremities HEART Score - HEART Score Troponin: Troponin T < 0.010 ng/mL (0.00-0.029) 02/01/22 14:02 Results - Labs CBC & Chem 7: 02/01/22 14:02 02/02/22 04:45 Labs: Laboratory Last Values WBC 6.3 K/mm3 (4.5-11.0) 02/01/22 14:02 RBC 5.01 M/mm3 (3.65-5.03) 02/01/22 14:02 Hgb 11.9 gm/dl (10.1-14.3) 02/01/22 14:02 Hct 39.4 % (30.3-42.9) 02/01/22 14:02 MCV 79 fl (79-97) 02/01/22 14:02 MCH 24 pg (28-32) L 02/01/22 14:02 MCHC 30 % (30-34) 02/01/22 14:02 RDW 22.4 % (13.2-15.2) H 02/01/22 14:02 Plt Count 220 K/mm3 (140-440) 02/01/22 14:02 Lymph % (Auto) 26.0 % (13.4-35.0) 02/01/22 14:02 [place] % (Auto) 12.4 % (0.0-7.3) H 02/01/22 14:02 Eos % (Auto) 1.9 % (0.0-4.3) 02/01/22 14:02 Baso % (Auto) 1.9 % (0.0-1.8) H 02/01/22 14:02 Lymph # (Auto) 1.6 K/mm3 (1.2-5.4) 02/01/22 14:02 [place] # (Auto) 0.8 K/mm3 (0.0-0.8) 02/01/22 14:02 Eos # (Auto) 0.1 K/mm3 (0.0-0.4) 02/01/22 14:02 Baso # (Auto) 0.1 K/mm3 (0.0-0.1) 02/01/22 14:02 Seg Neutrophils % 57.8 % (40.0-70.0) 02/01/22 14:02 Seg Neutrophils # 3.6 K/mm3 (1.8-7.7) 02/01/22 14:02 Sodium 144 mmol/L (137-145) 02/02/22 04:45 Potassium 3.4 mmol/L (3.6-5.0) L 02/02/22 04:45 Chloride 101.7 mmol/L (98-107) 02/02/22 04:45 Carbon Dioxide 31 mmol/L (22-30) H 02/02/22 04:45 Anion Gap 15 mmol/L 02/02/22 04:45 BUN 23 mg/dL (7-17) H 02/02/22 04:45 Creatinine 1.5 mg/dL (0.6-1.2) H 02/02/22 04:45 Estimated GFR 44 ml/min 02/02/22 04:45 BUN/Creatinine Ratio 15 % 02/02/22 04:45 Glucose 86 mg/dL (65-100) 02/02/22 04:45 Calcium 8.9 mg/dL (8.4-10.2) 02/02/22 04:45 Total Bilirubin 0.90 mg/dL (0.1-1.2) 02/01/22 14:02 AST 65 units/L (5-40) H 02/01/22 14:02 ALT 76 units/L (7-56) H 02/01/22 14:02 Alkaline Phosphatase 119 units/L (35-129) 02/01/22 14:02 Troponin T < 0.010 ng/mL (0.00-0.029) 02/01/22 14:02 NT-Pro-B Natriuret Pep 4482 pg/mL (0-900) H 02/01/22 14:02 Total Protein 5.7 g/dL (6.3-8.2) L 02/01/22 14:02 Albumin 3.2 g/dL (3.9-5) L 02/01/22 14:02 Albumin/Globulin Ratio 1.3 % 02/01/22 14:02 Hauser/IV: Voiding Method Bedside Commode Active Medications - Current Medications Current Medications: Generic Name Dose Route Start Last Admin Trade Name Freq PRN Reason Stop Dose Admin Acetaminophen 650 mg 02/01/22 16:41 Acetaminophen 325 Mg Tab PO Q4H PRN Pain MILD(1-3)/Fever >100.5/PARKER Albuterol 2.5 mg 02/01/22 16:41 Albuterol 2.5 Mg/3 Ml Nebu IH Q4HRT PRN Shortness Of Breath Amlodipine Besylate 5 mg 02/01/22 23:58 02/02/22 10:13 Amlodipine 5 Mg Tab PO 5 mg QDAY ASHLY Administration Docusate Sodium 100 mg 02/01/22 16:43 Docusate Sodium 100 Mg Cap PO BID PRN Constipation Ferrous Sulfate 325 mg 02/02/22 10:00 02/02/22 10:13 Ferrous Sulfate 325 Mg Tab PO 325 mg QDAY ASHLY Administration Furosemide 40 mg 02/01/22 18:00 02/02/22 05:35 Furosemide 40 Mg/4 Ml Inj IV 40 mg BID@0600,1800 ASHLY Administration Hydralazine HCl 50 mg 02/02/22 14:00 Hydralazine 25 Mg Tab PO Q8HR ASHLY Hydromorphone HCl 0.5 mg 02/01/22 16:41 02/01/22 23:14 Hydromorphone 1 Mg/1 Ml Inj IV 0.5 mg Q13H PRN Administration Pain , Severe (7-10) Metoprolol Tartrate 25 mg 02/01/22 23:59 02/02/22 08:27 Metoprolol Tartrate 25 Mg Tab PO 25 mg DAILY@0800 [facility] Administration Ondansetron HCl 4 mg 02/01/22 16:41 Ondansetron 4 Mg/2 Ml Inj IV Q8H PRN Nausea And Vomiting Oxycodone/Acetaminophen 1 tab 02/01/22 16:41 02/02/22 08:27 Oxycodone /Acetaminophen 5-325mg Tab PO 1 tab Q6H PRN Administration Pain, Moderate (4-6) Sodium Chloride 10 ml 02/01/22 22:00 02/02/22 10:13 Sodium Chloride 0.9% 10 Ml Flush Syringe IV 10 ml BID ASHLY Administration Sodium Chloride 10 ml 02/01/22 16:41 Sodium Chloride 0.9% 10 Ml Flush Syringe IV PRN PRN LINE FLUSH Valsartan 160 mg 02/02/22 07:00 02/02/22 06:44 Valsartan 160mg Tab PO 160 mg DAILY ASHLY Administration
[2022-02-02] MEDS: hydrALAZINE 25 MG TAB PO SCH ×2 (14:20→21:26)
--- NOTE | 2022-02-02 16:15 | Consultation ---
History of Present Illness - Reason for Consult Consult date: 02/02/22 acute renal failure - History of Present Illness The patient is a 51 YO female with histor os Obesity, HTN, CHF, Hodgkins Disease and Anemia of Chronic Disease who presented to [facility] ED 02/01/22 with sob for the past month. She also reports bilateral leg swelling, orthopnea, COSME and 30 lbs weight gain. She was seen and evaluated by her primary care physician and treated with diuretic therapy. Patient denies any fever, chills, N, V, D, abd pain, rash, dysuria, hematuria, melena, PARKER, dizziness, cp or syncope. Patient found to have a pulse oximetry of 89% on room air. CXR showed cardiomegaly. Echo with normal EF and pulmonary HTN. Patient was admitted for further evaluation. Creatinine is 1.5. Nephrology was consulted for further evaluation and treatment of ERNESTO. Past History Past Medical History: anemia, cancer, heart failure, hypertension, other (See HPI) Past Surgical History: hysterectomy Social history: , lives with family. denies: smoking, alcohol abuse, prescription drug abuse Family history: diabetes, hypertension Medications and Allergies Allergies Allergy/AdvReac Type Severity Reaction Status Date / Time No Known Allergies Allergy Unverified 09/08/20 12:54 Home Medications Medication Instructions Recorded Confirmed Last Taken Type Folic Acid 1 mg PO QDAY 02/01/22 02/01/22 Unknown History Furosemide [Lasix] 40 mg PO QDAY 02/01/22 02/01/22 Unknown History Metoprolol Xl [Metoprolol 25 mg PO QDAY 02/01/22 02/01/22 Unknown History SUCCINATE ER TAB] Potassium Chloride 20 meq PO QDAY 02/01/22 02/01/22 Unknown History amLODIPine [Norvasc] 5 mg PO DAILY 02/01/22 02/01/22 Unknown History Active Meds: Active Medications Acetaminophen (Acetaminophen 325 Mg Tab) 650 mg PO Q4H PRN PRN Reason: Pain MILD(1-3)/Fever >100.5/PARKER Albuterol (Albuterol 2.5 Mg/3 Ml Nebu) 2.5 mg IH Q4HRT PRN PRN Reason: Shortness Of Breath Amlodipine Besylate (Amlodipine 5 Mg Tab) 5 mg PO QDAY ASHLY Last Admin: 02/02/22 10:13 Dose: 5 mg Docusate Sodium (Docusate Sodium 100 Mg Cap) 100 mg PO BID PRN PRN Reason: Constipation Ferrous Sulfate (Ferrous Sulfate 325 Mg Tab) 325 mg PO QDAY [facility] Last Admin: 02/02/22 10:13 Dose: 325 mg Furosemide (Furosemide 40 Mg/4 Ml Inj) 40 mg IV BID@0600,1800 [facility] Last Admin: 02/02/22 05:35 Dose: 40 mg Hydralazine HCl (Hydralazine 25 Mg Tab) 50 mg PO Q8HR [facility] Hydromorphone HCl (Hydromorphone 1 Mg/1 Ml Inj) 0.5 mg IV Q13H PRN PRN Reason: Pain , Severe (7-10) Last Admin: 02/01/22 23:14 Dose: 0.5 mg Metoprolol Tartrate (Metoprolol Tartrate 25 Mg Tab) 25 mg PO DAILY@0800 [facility] Last Admin: 02/02/22 08:27 Dose: 25 mg Ondansetron HCl (Ondansetron 4 Mg/2 Ml Inj) 4 mg IV Q8H PRN PRN Reason: Nausea And Vomiting Oxycodone/Acetaminophen (Oxycodone /Acetaminophen 5-325mg Tab) 1 tab PO Q6H PRN PRN Reason: Pain, Moderate (4-6) Last Admin: 02/02/22 08:27 Dose: 1 tab Sodium Chloride (Sodium Chloride 0.9% 10 Ml Flush Syringe) 10 ml IV BID [facility] Last Admin: 02/02/22 10:13 Dose: 10 ml Sodium Chloride (Sodium Chloride 0.9% 10 Ml Flush Syringe) 10 ml IV PRN PRN PRN Reason: LINE FLUSH Valsartan (Valsartan 160mg Tab) 160 mg PO DAILY [facility] Last Admin: 02/02/22 06:44 Dose: 160 mg Review of Systems All systems: negative Exam - Vital Signs Vital signs: Vital Signs Temp Pulse Resp Pulse Ox 98.7 F 90 20 96 02/01/22 13:17 02/01/22 13:17 02/01/22 13:17 02/01/22 13:17 Results - Lab Results 02/01/22 14:02 02/03/22 19:43 Most recent lab results Calcium 8.9 mg/dL (8.4-10.2) 02/02/22 04:45 Assessment and Plan 1. Acute kidney injury vs CKD: ERNESTO in the setting of CHF. Baseline renal function is unknown. Urine studies and Renal US. Monitor renal function. Avoid nephrotoxic agents. Meds dosage based on GFR. 2. FEN: Metabolic alkalosis, monitor. Volume overload, IV Lasix, monitor. Monitor lytes and volume status. 3. Decompensated HFpEF: Echo; normal EF. Pulmonary HTN. Followed by Cards. 4. Acute hypoxic respiratory failure, POA: NC O2. Monitor. 5. Elevated ALT / AST: Monitor. 6. Hypertension. 7. Non-Hodgkin's lymphoma. Subjective: Patient was seen and examined at the bedside. Examination: General appearance: well-developed, appears stated age, obese, no distress HEENT: atraumatic, pupils reacting to light Neck: trachea midline Respiratory: ctab Heart: S1S2, regular, no murmur Abdomen: soft, bowel sounds heard, NT Integumentary: no obvious rash Neurologic: AO, able to move extremities Ext: 1 to 2+ LE edema noted
[2022-02-02] MEDS ORDERED: POTASSIUM CHLORIDE ER 20 MEQ TAB PO ONE (22:26)
[2022-02-03] MEDS: hydrALAZINE 25 MG TAB PO SCH ×3 (05:19→21:16)
[2022-02-03] MEDS: FUROSEMIDE 40 MG/4 ML INJ IV SCH (05:19)
[2022-02-03 05:33] LABS: Calcium 8.5 mg/dL (8.4-10.2)
[2022-02-03] MEDS ORDERED: POTASSIUM CHLORIDE ER 20 MEQ TAB PO ONE ×2 (07:11→10:00)
--- NOTE | 2022-02-03 08:51 | Electrocardiograph Report ---
[facility] Test Date: 2022-02-01 Test Time: 16:00:00 Pat Name: ZORA MORALES Department: Room: A465 1 Gender: F Manager Medical Affairs: MICAH : 1970 Requested By: BERNARDINO MOYA Order Number: [id number] Reading MD: Skyler Brown Measurements Intervals [place] Rate: 90 P: 66 GA: 145 QRS: 24 QRSD: 94 T: 41 QT: 392 QTc: 480 Interpretive Statements Sinus rhythm Left atrial enlargement [id number] No previous ECG available for comparison Electronically Signed On 02-03-2022 8:50:56 EDT by Skyler Brown
[2022-02-03] MEDS: METOPROLOL TARTRATE 25 MG TAB PO SCH (08:58)
[2022-02-03] MEDS: VALSARTAN 160MG TAB PO SCH (09:57)
[2022-02-03] MEDS: FERROUS SULFATE 325 MG TAB PO SCH (09:57)
[2022-02-03] MEDS: amLODIPine 5 MG TAB PO SCH (09:57)
--- NOTE | 2022-02-03 11:56 | Progress Note ---
Assessment and Plan Assessment and plan: 51 YO Female with HTN, CHF, Hodgkins Disease, Anemia of Chronic Disease presents ED for evaluation of dyspnea and lower extremity edema x2 weeks. Patient reported orthopnea, PND and decreased exercise tolerance. The patient had a new diagnosis of CHF January 01 of this year and states that she has been compliant with her medications but not with her diet. Patient reported eating various fast foods. The patient reports that she was to have her first appointment with [facility] for next month. The patient was admitted with diagnosis below: Acute hypoxic respiratory failure Acute CHF Obesity hypoventilation syndrome Acute kidney injury Anemia Accelerated hypertension Hodgkin's lymphoma 02/02/2022. Continue antihypertensive medications for blood pressure control. Continue hydralazine for afterload reduction. Continue IV Lasix twice daily per cardiology recommendations. Patient with a baseline creatinine of 0.10 September 2020. We will consult nephrology to aid in volume control and assist with acute kidney injury 02/03/2022. We will add Procardia for accelerated hypertension. Continue GDMT for heart failure. Await nephrology recommendations. History Interval history: No new issues overnight. Hospitalist Physical - Constitutional Vitals: Temp Pulse Resp BP Pulse Ox 98.0 F 87 18 165/119 100 02/03/22 11:00 02/03/22 08:12 02/03/22 11:00 02/03/22 11:00 02/03/22 08:12 General appearance: Present: mild distress - EENT Eyes: Present: PERRL, EOM intact ENT: hearing intact, clear oral mucosa, dentition normal - Neck Neck: Present: supple, normal ROM - Respiratory Respiratory effort: normal Respiratory: bilateral: CTA - Cardiovascular Rhythm: regular Heart Sounds: Present: S1 & S2. Absent: gallop, rub - Extremities Extremities: no ischemia, No edema, Full ROM - Abdominal General gastrointestinal: soft, non-tender, non-distended, normal bowel sounds - Integumentary Integumentary: Present: clear, warm, dry - Neurologic Neurologic: CNII-XII intact, moves all extremities HEART Score - HEART Score Troponin: Troponin T < 0.010 ng/mL (0.00-0.029) 02/01/22 14:02 Results - Labs CBC & Chem 7: 02/01/22 14:02 02/03/22 04:33 Labs: Laboratory Last Values WBC 6.3 K/mm3 (4.5-11.0) 02/01/22 14:02 RBC 5.01 M/mm3 (3.65-5.03) 02/01/22 14:02 Hgb 11.9 gm/dl (10.1-14.3) 02/01/22 14:02 Hct 39.4 % (30.3-42.9) 02/01/22 14:02 MCV 79 fl (79-97) 02/01/22 14:02 MCH 24 pg (28-32) L 02/01/22 14:02 MCHC 30 % (30-34) 02/01/22 14:02 RDW 22.4 % (13.2-15.2) H 02/01/22 14:02 Plt Count 220 K/mm3 (140-440) 02/01/22 14:02 Lymph % (Auto) 26.0 % (13.4-35.0) 02/01/22 14:02 [place] % (Auto) 12.4 % (0.0-7.3) H 02/01/22 14:02 Eos % (Auto) 1.9 % (0.0-4.3) 02/01/22 14:02 Baso % (Auto) 1.9 % (0.0-1.8) H 02/01/22 14:02 Lymph # (Auto) 1.6 K/mm3 (1.2-5.4) 02/01/22 14:02 [place] # (Auto) 0.8 K/mm3 (0.0-0.8) 02/01/22 14:02 Eos # (Auto) 0.1 K/mm3 (0.0-0.4) 02/01/22 14:02 Baso # (Auto) 0.1 K/mm3 (0.0-0.1) 02/01/22 14:02 Seg Neutrophils % 57.8 % (40.0-70.0) 02/01/22 14:02 Seg Neutrophils # 3.6 K/mm3 (1.8-7.7) 02/01/22 14:02 Sodium 143 mmol/L (137-145) 02/03/22 04:33 Potassium 2.9 mmol/L (3.6-5.0) L* 02/03/22 04:33 Chloride 101.5 mmol/L (98-107) 02/03/22 04:33 Carbon Dioxide 31 mmol/L (22-30) H 02/03/22 04:33 Anion Gap 13 mmol/L 02/03/22 04:33 BUN 24 mg/dL (7-17) H 02/03/22 04:33 Creatinine 1.5 mg/dL (0.6-1.2) H 02/03/22 04:33 Estimated GFR 44 ml/min 02/03/22 04:33 BUN/Creatinine Ratio 16 % 02/03/22 04:33 Glucose 96 mg/dL (65-100) 02/03/22 04:33 Calcium 8.5 mg/dL (8.4-10.2) 02/03/22 04:33 Phosphorus 3.90 mg/dL (2.5-4.5) 02/03/22 04:33 Magnesium 1.70 mg/dL (1.7-2.3) 02/03/22 04:33 Total Bilirubin 0.90 mg/dL (0.1-1.2) 02/01/22 14:02 AST 65 units/L (5-40) H 02/01/22 14:02 ALT 76 units/L (7-56) H 02/01/22 14:02 Alkaline Phosphatase 119 units/L (35-129) 02/01/22 14:02 Troponin T < 0.010 ng/mL (0.00-0.029) 02/01/22 14:02 NT-Pro-B Natriuret Pep 4482 pg/mL (0-900) H 02/01/22 14:02 Total Protein 5.7 g/dL (6.3-8.2) L 02/01/22 14:02 Albumin 3.2 g/dL (3.9-5) L 02/01/22 14:02 Albumin/Globulin Ratio 1.3 % 02/01/22 14:02 Hauser/IV: Voiding Method Bedside Commode Active Medications - Current Medications Current Medications: Generic Name Dose Route Start Last Admin Trade Name Freq PRN Reason Stop Dose Admin Acetaminophen 650 mg 02/01/22 16:41 Acetaminophen 325 Mg Tab PO Q4H PRN Pain MILD(1-3)/Fever >100.5/PARKER Albuterol 2.5 mg 02/01/22 16:41 Albuterol 2.5 Mg/3 Ml Nebu IH Q4HRT PRN Shortness Of Breath Docusate Sodium 100 mg 02/01/22 16:43 Docusate Sodium 100 Mg Cap PO BID PRN Constipation Ferrous Sulfate 325 mg 02/02/22 10:00 02/03/22 09:57 Ferrous Sulfate 325 Mg Tab PO 325 mg QDAY ASHLY Administration Folic Acid 1 mg 02/04/22 10:00 Folic Acid 1 Mg Tab PO QDAY [facility] Hydralazine HCl 50 mg 02/02/22 14:00 02/03/22 05:19 Hydralazine 25 Mg Tab PO 50 mg Q8HR ASHLY Administration Hydromorphone HCl 0.5 mg 02/01/22 16:41 02/01/22 23:14 Hydromorphone 1 Mg/1 Ml Inj IV 0.5 mg Q13H PRN Administration Pain , Severe (7-10) Metoprolol Tartrate 25 mg 02/01/22 23:59 02/03/22 08:58 Metoprolol Tartrate 25 Mg Tab PO 25 mg DAILY@0800 [facility] Administration Nifedipine 30 mg 02/03/22 22:00 Nifedipine Xl 30 Mg Tab PO Q12HR [facility] Ondansetron HCl 4 mg 02/01/22 16:41 Ondansetron 4 Mg/2 Ml Inj IV Q8H PRN Nausea And Vomiting Oxycodone/Acetaminophen 1 tab 02/01/22 16:41 02/02/22 08:27 Oxycodone /Acetaminophen 5-325mg Tab PO 1 tab Q6H PRN Administration Pain, Moderate (4-6) Sodium Chloride 10 ml 02/01/22 22:00 02/03/22 09:57 Sodium Chloride 0.9% 10 Ml Flush Syringe IV 10 ml BID ASHLY Administration Sodium Chloride 10 ml 02/01/22 16:41 Sodium Chloride 0.9% 10 Ml Flush Syringe IV PRN PRN LINE FLUSH Valsartan 160 mg 02/02/22 07:00 02/03/22 09:57 Valsartan 160mg Tab PO 160 mg DAILY ASHLY Administration
--- NOTE | 2022-02-03 19:26 | Progress Note ---
Assessment and Plan - Patient Problems (1) CHF exacerbation Current Visit: Yes Status: Acute Qualifiers: Heart failure type: systolic Qualified Code(s): I50.23 - Acute on chronic systolic (congestive) heart failure (2) Obesity hypoventilation syndrome Current Visit: Yes Status: Acute Subjective Date of service: 02/03/22 Interval history: sob/edema improving Objective Vital Signs Temp Pulse Resp BP BP Pulse Ox 02/03/22 18:56 98.6 F 87 18 168/117 95 02/03/22 13:29 165/119 02/03/22 11:00 98.0 F 18 165/119 02/03/22 08:12 97.9 F 87 18 175/125 100 02/03/22 07:45 92 02/03/22 05:19 163/121 02/03/22 03:31 98.7 F 78 18 163/121 99 02/02/22 23:00 98.7 F 84 18 151/109 97 02/02/22 22:17 98 02/02/22 22:13 88 02/02/22 22:00 98 02/02/22 21:26 61 164/112 - Physical Examination General: No Apparent Distress, Other (obese) HEENT: Positive: PERRL Neck: Positive: JVD/HJR Cardiac: Positive: Regular Rhythm, Systolic Murmur Lungs: Positive: clear to auscultation Abdomen: Positive: Unremarkable Extremities: Present: +1 Edema - Labs and Meds Comprehensive Metabolic Panel 02/03/22 Range/Units 04:33 Sodium 143 (137-145) mmol/L Potassium 2.9 L* (3.6-5.0) mmol/L Chloride 101.5 (98-107) mmol/L Carbon Dioxide 31 H (22-30) mmol/L BUN 24 H (7-17) mg/dL Creatinine 1.5 H (0.6-1.2) mg/dL Glucose 96 (65-100) mg/dL Calcium 8.5 (8.4-10.2) mg/dL
[2022-02-03 21:03] LABS: Calcium 8.6 mg/dL (8.4-10.2)
[2022-02-03] MEDS: NIFEdipine XL 30 MG TAB PO SCH (21:16)
--- NOTE | 2022-02-03 22:26 | Progress Note ---
Assessment and Plan 1. Acute kidney injury vs CKD: ERNESTO in the setting of CHF. Baseline renal function is unknown. Urine studies and Renal US. Monitor renal function. Creatinine leveled off. Avoid nephrotoxic agents. Meds dosage based on GFR. 2. FEN: Metabolic alkalosis, monitor. Volume overload, IV Lasix, monitor. Monitor lytes and volume status. 3. Decompensated HFpEF: Echo; normal EF. Pulmonary HTN. Followed by Cards. 4. Acute hypoxic respiratory failure, POA: NC O2. Monitor. 5. Elevated ALT / AST: Monitor. 6. Hypertension. 7. Non-Hodgkin's lymphoma. Subjective: Patient was seen and examined at the bedside. Examination: General appearance: well-developed, appears stated age, obese, no distress HEENT: atraumatic, pupils reacting to light Neck: trachea midline Respiratory: ctab Heart: S1S2, regular, no murmur Abdomen: soft, bowel sounds heard, NT Integumentary: no obvious rash Neurologic: AO, able to move extremities Ext: 1 to 2+ LE edema noted Subjective Date of service: 02/03/22 Objective - Vital Signs Vital signs: Vital Signs - 12hr 02/03/22 02/03/22 02/03/22 11:00 13:29 18:56 Temperature 98.0 F 98.6 F Pulse Rate 87 Respiratory 18 18 Rate Blood Pressure 165/119 165/119 168/117 O2 Sat by Pulse 95 Oximetry 02/03/22 02/03/22 02/03/22 20:57 21:16 21:17 Temperature 97.2 F L Pulse Rate 88 88 88 Respiratory 12 Rate Blood Pressure 178/130 178/130 178/130 O2 Sat by Pulse 96 Oximetry - Lab 02/01/22 14:02 02/03/22 19:43 Most recent lab results Calcium 8.6 mg/dL (8.4-10.2) 02/03/22 19:43 Phosphorus 3.90 mg/dL (2.5-4.5) 02/03/22 04:33 Magnesium 1.70 mg/dL (1.7-2.3) 02/03/22 04:33 Medications & Allergies - Medications Allergies/Adverse Reactions: Allergies No Known Allergies Allergy (Unverified 09/08/20 12:54) Home Medications: Home Medications Medication Instructions Recorded Confirmed Last Taken Type Folic Acid 1 mg PO QDAY 02/01/22 02/01/22 Unknown History Furosemide [Lasix] 40 mg PO QDAY 02/01/22 02/01/22 Unknown History Metoprolol Xl [Metoprolol 25 mg PO QDAY 02/01/22 02/01/22 Unknown History SUCCINATE ER TAB] Potassium Chloride 20 meq PO QDAY 02/01/22 02/01/22 Unknown History amLODIPine [Norvasc] 5 mg PO DAILY 02/01/22 02/01/22 Unknown History Active Medications: Generic Name Dose Route Start Last Admin Trade Name Freq PRN Reason Stop Dose Admin Acetaminophen 650 mg 02/01/22 16:41 Acetaminophen 325 Mg Tab PO Q4H PRN Pain MILD(1-3)/Fever >100.5/PARKER Albuterol 2.5 mg 02/01/22 16:41 Albuterol 2.5 Mg/3 Ml Nebu IH Q4HRT PRN Shortness Of Breath Docusate Sodium 100 mg 02/01/22 16:43 Docusate Sodium 100 Mg Cap PO BID PRN Constipation Ferrous Sulfate 325 mg 02/02/22 10:00 02/03/22 09:57 Ferrous Sulfate 325 Mg Tab PO 325 mg QDAY ASHLY Administration Folic Acid 1 mg 02/04/22 10:00 Folic Acid 1 Mg Tab PO QDAY ASHLY Furosemide 20 mg 02/04/22 06:00 Furosemide 20 Mg/2 Ml Inj IV 0600,1800 ASHLY Hydralazine HCl 50 mg 02/02/22 14:00 02/03/22 21:16 Hydralazine 25 Mg Tab PO 50 mg Q8HR ASHLY Administration Hydromorphone HCl 0.5 mg 02/01/22 16:41 02/01/22 23:14 Hydromorphone 1 Mg/1 Ml Inj IV 0.5 mg Q13H PRN Administration Pain , Severe (7-10) Labetalol HCl 100 mg 02/03/22 22:00 02/03/22 21:17 Labetalol 100 Mg Tab PO 100 mg Q8HR ASHLY Administration Nifedipine 30 mg 02/03/22 22:00 02/03/22 21:16 Nifedipine Xl 30 Mg Tab PO 30 mg Q12HR ASHLY Administration Ondansetron HCl 4 mg 02/01/22 16:41 Ondansetron 4 Mg/2 Ml Inj IV Q8H PRN Nausea And Vomiting Oxycodone/Acetaminophen 1 tab 02/01/22 16:41 02/02/22 08:27 Oxycodone /Acetaminophen 5-325mg Tab PO 1 tab Q6H PRN Administration Pain, Moderate (4-6) Sodium Chloride 10 ml 02/01/22 22:00 02/03/22 21:56 Sodium Chloride 0.9% 10 Ml Flush Syringe IV 10 ml BID ASHLY Administration Sodium Chloride 10 ml 02/01/22 16:41 Sodium Chloride 0.9% 10 Ml Flush Syringe IV PRN PRN LINE FLUSH Valsartan 160 mg 02/02/22 07:00 02/03/22 09:57 Valsartan 160mg Tab PO 160 mg DAILY ASHLY Administration
--- NOTE | 2022-02-03 22:39 | Consultation ---
DATE OF CONSULTATION: 02/02/2022 HISTORY OF PRESENT ILLNESS: The patient is a 51-year-old female with multiple medical problems including hypertension, remote history of Hodgkin's disease and anemia, who has been experiencing shortness of breath and ankle edema for a number of weeks. Her symptoms worsened recently and she had an appointment to see our group in the office. She presented to the hospital with worsening symptoms. She admits to orthopnea and PND. She also has dyspnea on exertion, but there has been no chest pain, palpitations, dizziness, syncope, claudication or infectious symptoms. The blood pressure has been out of control for months. She does not follow an appropriate diet. She did not describe any smoking or history of heavy alcohol use. She was noted to be hypoxic on presentation. PAST MEDICAL HISTORY: There is a past history of heart failure and Hodgkin's lymphoma. SURGERIES: Hysterectomy. Smoking, none. Alcohol, no heavy use. FAMILY HISTORY: Diabetes, hypertension. ALLERGIES: None. MEDICATIONS: See the nurse's list. REVIEW OF SYSTEMS: No other complaints or medical problems. She did not describe any extensive skin problems, arthritis, GI disorders or disorders. Note, I believe she received both radiation and chemo when she had Hodgkin's lymphoma. PHYSICAL EXAMINATION: GENERAL: Well-developed, well-nourished, mildly obese, no acute distress. Alert, oriented, cooperative. MENTAL STATUS: Normal. EYES, NOSE AND THROAT: Unremarkable. NECK: Reveals jugular venous distention. There are no bruits. Neck is supple, no masses. LUNGS: Bibasilar rales. No labored respirations. HEART: Regular rhythm. Grade 3/6 systolic ejection murmur heard both right and left of the sternum. ABDOMEN: Soft, nontender, no masses. No obvious ascites. EXTREMITIES: No cyanosis or clubbing. There is 1+ pedal edema. Peripheral pulses are intact. NEUROLOGICAL: Symmetrical. SKIN: Clear. IMPRESSION: 1. Recurrence of congestive heart failure over the past month or so. 2. Uncontrolled hypertension: Possible cause of her congestive heart failure. 3. Elevated creatinine: Possible underlying chronic kidney disease. 4. Abnormal LFTs: Consider underlying liver disease versus passive congestion secondary to heart failure. 5. Hypokalemia. 6. Remote history of Hodgkin's lymphoma. 7. Vague description of obesity hypoventilation syndrome in the chart. PLAN: Aggressive therapy for congestive heart failure and hypertension. Echocardiography. Consider workup for coronary artery disease at a later date. Discussed weight reduction, strict diet, fluid and salt restriction, daily weights, perform a sleep study at a later date. Thank you for this consultation. We will follow the patient. TID: [id number] RECEIPT: [id number] JDS/PRE
[2022-02-04] MEDS: hydrALAZINE 25 MG TAB PO SCH ×3 (05:25→22:48)
[2022-02-04] MEDS ORDERED: FUROSEMIDE 20 MG/2 ML INJ IV SCH (06:00)
[2022-02-04 06:25] LABS: Calcium 8.7 mg/dL (8.4-10.2)
[2022-02-04] MEDS ORDERED: POTASSIUM CHLORIDE ER 20 MEQ TAB PO NR (08:30)
[2022-02-04] MEDS: VALSARTAN 160MG TAB PO SCH ×2 (09:09→22:48)
[2022-02-04] MEDS: FERROUS SULFATE 325 MG TAB PO SCH (09:09)
[2022-02-04] MEDS: NIFEdipine XL 30 MG TAB PO SCH (09:10)
[2022-02-04] MEDS: FOLIC ACID 1 MG TAB PO SCH (09:10)
[2022-02-04] MEDS ORDERED: METOPROLOL SUCCINATE XL 25 MG TAB PO SCH (10:00)
--- NOTE | 2022-02-04 10:53 | Progress Note ---
Assessment and Plan Assessment and plan: 51 YO Female with HTN, CHF, Hodgkins Disease, Anemia of Chronic Disease presents ED for evaluation of dyspnea and lower extremity edema x2 weeks. Patient reported orthopnea, PND and decreased exercise tolerance. The patient had a new diagnosis of CHF January 01 of this year and states that she has been compliant with her medications but not with her diet. Patient reported eating various fast foods. The patient reports that she was to have her first appointment with [facility] for next month. The patient was admitted with diagnosis below: Acute hypoxic respiratory failure Acute CHF Obesity hypoventilation syndrome Acute kidney injury Anemia Accelerated hypertension Hodgkin's lymphoma 02/02/2022. Continue antihypertensive medications for blood pressure control. Continue hydralazine for afterload reduction. Continue IV Lasix twice daily per cardiology recommendations. Patient with a baseline creatinine of 0.10 September 2020. We will consult nephrology to aid in volume control and assist with acute kidney injury 02/03/2022. We will add Procardia for accelerated hypertension. Continue GDMT for heart failure. Await nephrology recommendations. History Interval history: No new issues overnight. Hospitalist Physical - Constitutional Vitals: Temp Pulse Resp BP Pulse Ox 98.6 F 85 18 156/94 100 02/04/22 08:50 02/04/22 08:50 02/04/22 08:50 02/04/22 08:50 02/04/22 08:50 General appearance: Present: no acute distress - EENT Eyes: Present: PERRL, EOM intact ENT: hearing intact, clear oral mucosa, dentition normal - Neck Neck: Present: supple, normal ROM - Respiratory Respiratory effort: normal Respiratory: bilateral: CTA - Cardiovascular Rhythm: regular Heart Sounds: Present: S1 & S2. Absent: gallop, rub - Extremities Extremities: no ischemia, No edema, Full ROM - Abdominal General gastrointestinal: soft, non-tender, non-distended, normal bowel sounds - Integumentary Integumentary: Present: clear, warm, dry - Neurologic Neurologic: CNII-XII intact, moves all extremities HEART Score - HEART Score Troponin: Troponin T < 0.010 ng/mL (0.00-0.029) 02/01/22 14:02 Results - Labs CBC & Chem 7: 02/01/22 14:02 02/04/22 05:19 Labs: Laboratory Last Values WBC 6.3 K/mm3 (4.5-11.0) 02/01/22 14:02 RBC 5.01 M/mm3 (3.65-5.03) 02/01/22 14:02 Hgb 11.9 gm/dl (10.1-14.3) 02/01/22 14:02 Hct 39.4 % (30.3-42.9) 02/01/22 14:02 MCV 79 fl (79-97) 02/01/22 14:02 MCH 24 pg (28-32) L 02/01/22 14:02 MCHC 30 % (30-34) 02/01/22 14:02 RDW 22.4 % (13.2-15.2) H 02/01/22 14:02 Plt Count 220 K/mm3 (140-440) 02/01/22 14:02 Lymph % (Auto) 26.0 % (13.4-35.0) 02/01/22 14:02 [place] % (Auto) 12.4 % (0.0-7.3) H 02/01/22 14:02 Eos % (Auto) 1.9 % (0.0-4.3) 02/01/22 14:02 Baso % (Auto) 1.9 % (0.0-1.8) H 02/01/22 14:02 Lymph # (Auto) 1.6 K/mm3 (1.2-5.4) 02/01/22 14:02 [place] # (Auto) 0.8 K/mm3 (0.0-0.8) 02/01/22 14:02 Eos # (Auto) 0.1 K/mm3 (0.0-0.4) 02/01/22 14:02 Baso # (Auto) 0.1 K/mm3 (0.0-0.1) 02/01/22 14:02 Seg Neutrophils % 57.8 % (40.0-70.0) 02/01/22 14:02 Seg Neutrophils # 3.6 K/mm3 (1.8-7.7) 02/01/22 14:02 Sodium 142 mmol/L (137-145) 02/04/22 05:19 Potassium 3.6 mmol/L (3.6-5.0) 02/04/22 05:19 Chloride 101.7 mmol/L (98-107) 02/04/22 05:19 Carbon Dioxide 28 mmol/L (22-30) 02/04/22 05:19 Anion Gap 16 mmol/L 02/04/22 05:19 BUN 21 mg/dL (7-17) H 02/04/22 05:19 Creatinine 1.3 mg/dL (0.6-1.2) H 02/04/22 05:19 Estimated GFR 52 ml/min 02/04/22 05:19 BUN/Creatinine Ratio 16 % 02/04/22 05:19 Glucose 95 mg/dL (65-100) 02/04/22 05:19 Calcium 8.7 mg/dL (8.4-10.2) 02/04/22 05:19 Phosphorus 3.90 mg/dL (2.5-4.5) 02/03/22 04:33 Magnesium 1.70 mg/dL (1.7-2.3) 02/03/22 04:33 Total Bilirubin 0.90 mg/dL (0.1-1.2) 02/01/22 14:02 AST 65 units/L (5-40) H 02/01/22 14:02 ALT 76 units/L (7-56) H 02/01/22 14:02 Alkaline Phosphatase 119 units/L (35-129) 02/01/22 14:02 Troponin T < 0.010 ng/mL (0.00-0.029) 02/01/22 14:02 NT-Pro-B Natriuret Pep 4482 pg/mL (0-900) H 02/01/22 14:02 Total Protein 5.7 g/dL (6.3-8.2) L 02/01/22 14:02 Albumin 3.2 g/dL (3.9-5) L 02/01/22 14:02 Albumin/Globulin Ratio 1.3 % 02/01/22 14:02 PTH Intact 177.9 pg/mL (15-65) H 02/04/22 05:19 Hauser/IV: Voiding Method Toilet Active Medications - Current Medications Current Medications: Generic Name Dose Route Start Last Admin Trade Name Freq PRN Reason Stop Dose Admin Acetaminophen 650 mg 02/01/22 16:41 Acetaminophen 325 Mg Tab PO Q4H PRN Pain MILD(1-3)/Fever >100.5/PARKER Albuterol 2.5 mg 02/01/22 16:41 Albuterol 2.5 Mg/3 Ml Nebu IH Q4HRT PRN Shortness Of Breath Docusate Sodium 100 mg 02/01/22 16:43 Docusate Sodium 100 Mg Cap PO BID PRN Constipation Ferrous Sulfate 325 mg 02/02/22 10:00 02/04/22 09:09 Ferrous Sulfate 325 Mg Tab PO 325 mg QDAY ASHLY Administration Folic Acid 1 mg 02/04/22 10:00 02/04/22 09:10 Folic Acid 1 Mg Tab PO 1 mg QDAY ASHLY Administration Furosemide 20 mg 02/04/22 06:00 02/04/22 05:24 Furosemide 20 Mg/2 Ml Inj IV 20 mg 0600,1800 ASHLY Administration Hydralazine HCl 50 mg 02/02/22 14:00 02/04/22 05:25 Hydralazine 25 Mg Tab PO 50 mg Q8HR ASHLY Administration Hydromorphone HCl 0.5 mg 02/01/22 16:41 02/01/22 23:14 Hydromorphone 1 Mg/1 Ml Inj IV 0.5 mg Q13H PRN Administration Pain , Severe (7-10) Labetalol HCl 100 mg 02/03/22 22:00 02/04/22 05:24 Labetalol 100 Mg Tab PO 100 mg Q8HR ASHLY Administration Nifedipine 30 mg 02/03/22 22:00 02/04/22 09:10 Nifedipine Xl 30 Mg Tab PO 30 mg Q12HR ASHLY Administration Ondansetron HCl 4 mg 02/01/22 16:41 Ondansetron 4 Mg/2 Ml Inj IV Q8H PRN Nausea And Vomiting Oxycodone/Acetaminophen 1 tab 02/01/22 16:41 02/02/22 08:27 Oxycodone /Acetaminophen 5-325mg Tab PO 1 tab Q6H PRN Administration Pain, Moderate (4-6) Potassium Chloride 40 meq 02/04/22 08:30 Potassium Chloride Er 20 Meq Tab PO 02/04/22 12:00 ONCE NR Sodium Chloride 10 ml 02/01/22 22:00 02/03/22 21:56 Sodium Chloride 0.9% 10 Ml Flush Syringe IV 10 ml BID ASHLY Administration Sodium Chloride 10 ml 02/01/22 16:41 Sodium Chloride 0.9% 10 Ml Flush Syringe IV PRN PRN LINE FLUSH Valsartan 160 mg 02/02/22 07:00 02/04/22 09:09 Valsartan 160mg Tab PO 160 mg DAILY ASHLY Administration
[2022-02-04 12:12] LABS: Bacteria,Urine 1+ /HPF (Negative); Bilirubin,Urine NEG (Negative); Blood,Urine NEG (Negative); Color,Urine Straw (Yellow); Urobilinogen,Urine < 2.0 mg/dL (<2.0)
--- NOTE | 2022-02-04 12:26 | Ultrasound Report ---
ULTRASOUND RENAL INDICATION / CLINICAL INFORMATION: Acute renal failure.. COMPARISON: None available. FINDINGS: RIGHT KIDNEY: Length = 11.9 cm. - Echogenicity: Mildly echogenic. - Parenchymal Thickness: Normal. - Hydronephrosis: None. - Cyst / Mass: None. - Stones: None seen. LEFT KIDNEY: Length = 8.3 cm. - Echogenicity: Normal. - Parenchymal Thickness: Normal. - Hydronephrosis: None. - Cyst / Mass: None. - Stones: None seen. URINARY BLADDER: No significant abnormality. FREE FLUID: None. ADDITIONAL FINDINGS: None. IMPRESSION: 1. Mildly echogenic right kidney and slightly atrophic left kidney compared to the right. Otherwise n othing acute. Renal echogenicity can be seen in the setting of medical renal disease. Signer Name: Aleksandr Mcgrath MD Signed: 02/04/2022 12:22 PM Workstation Name: [id number]
--- NOTE | 2022-02-04 13:03 | Progress Note ---
Assessment and Plan Assessment and plan: 51 YO Female with HTN, CHF, Hodgkins Disease, Anemia of Chronic Disease presents ED for evaluation of dyspnea and lower extremity edema x2 weeks. Patient reported orthopnea, PND and decreased exercise tolerance. The patient had a new diagnosis of CHF January 01 of this year and states that she has been compliant with her medications but not with her diet. Patient reported eating various fast foods. The patient reports that she was to have her first appointment with [facility] for next month. The patient was admitted with diagnosis below: Acute hypoxic respiratory failure Acute diastolic heart failure Moderate to severe pulmonary hypertension. Obesity hypoventilation syndrome Acute kidney injury etiology possibly secondary to vasomotor nephropathy Anemia Accelerated hypertension Hodgkin's lymphoma 02/02/2022. Continue antihypertensive medications for blood pressure control. Continue hydralazine for afterload reduction. Continue IV Lasix twice daily per cardiology recommendations. Patient with a baseline creatinine of 0.10 September 2020. We will consult nephrology to aid in volume control and assist with acute kidney injury 02/03/2022. We will add Procardia for accelerated hypertension. Continue GDMT for heart failure. Await nephrology recommendations. 02/04/2022. Patient still with 23+ lower extremity pitting edema. Echocardiogram this hospitalization reveals left ventricular systolic function low normal with mild concentric left ventricular hypertrophy. LVEF 50-55%. Patient also has right ventricular systolic pressure of 59 mmHg. There is mode rate to severe pulmonary hypertension. Continue GDMT for heart failure per cardiology recommendations. Renal ultrasound essentially unremarkable History Interval history: No new issues overnight. Hospitalist Physical - Constitutional Vitals: Temp Pulse Resp BP Pulse Ox 98.6 F 85 18 156/94 97 02/04/22 08:50 02/04/22 08:50 02/04/22 08:50 02/04/22 08:50 02/04/22 09:20 General appearance: Present: no acute distress - EENT Eyes: Present: PERRL, EOM intact ENT: hearing intact, clear oral mucosa, dentition normal - Neck Neck: Present: supple, normal ROM - Respiratory Respiratory effort: normal Respiratory: bilateral: CTA - Cardiovascular Rhythm: regular Heart Sounds: Present: S1 & S2. Absent: gallop, rub - Extremities Extremities: no ischemia, No edema, Full ROM - Abdominal General gastrointestinal: soft, non-tender, non-distended, normal bowel sounds - Integumentary Integumentary: Present: clear, warm, dry - Neurologic Neurologic: CNII-XII intact, moves all extremities HEART Score - HEART Score Troponin: Troponin T < 0.010 ng/mL (0.00-0.029) 02/01/22 14:02 Results - Labs CBC & Chem 7: 02/01/22 14:02 02/04/22 05:19 Labs: Laboratory Last Values WBC 6.3 K/mm3 (4.5-11.0) 02/01/22 14:02 RBC 5.01 M/mm3 (3.65-5.03) 02/01/22 14:02 Hgb 11.9 gm/dl (10.1-14.3) 02/01/22 14:02 Hct 39.4 % (30.3-42.9) 02/01/22 14:02 MCV 79 fl (79-97) 02/01/22 14:02 MCH 24 pg (28-32) L 02/01/22 14:02 MCHC 30 % (30-34) 02/01/22 14:02 RDW 22.4 % (13.2-15.2) H 02/01/22 14:02 Plt Count 220 K/mm3 (140-440) 02/01/22 14:02 Lymph % (Auto) 26.0 % (13.4-35.0) 02/01/22 14:02 [place] % (Auto) 12.4 % (0.0-7.3) H 02/01/22 14:02 Eos % (Auto) 1.9 % (0.0-4.3) 02/01/22 14:02 Baso % (Auto) 1.9 % (0.0-1.8) H 02/01/22 14:02 Lymph # (Auto) 1.6 K/mm3 (1.2-5.4) 02/01/22 14:02 [place] # (Auto) 0.8 K/mm3 (0.0-0.8) 02/01/22 14:02 Eos # (Auto) 0.1 K/mm3 (0.0-0.4) 02/01/22 14:02 Baso # (Auto) 0.1 K/mm3 (0.0-0.1) 02/01/22 14:02 Seg Neutrophils % 57.8 % (40.0-70.0) 02/01/22 14:02 Seg Neutrophils # 3.6 K/mm3 (1.8-7.7) 02/01/22 14:02 Sodium 142 mmol/L (137-145) 02/04/22 05:19 Potassium 3.6 mmol/L (3.6-5.0) 02/04/22 05:19 Chloride 101.7 mmol/L (98-107) 02/04/22 05:19 Carbon Dioxide 28 mmol/L (22-30) 02/04/22 05:19 Anion Gap 16 mmol/L 02/04/22 05:19 BUN 21 mg/dL (7-17) H 02/04/22 05:19 Creatinine 1.3 mg/dL (0.6-1.2) H 02/04/22 05:19 Estimated GFR 52 ml/min 02/04/22 05:19 BUN/Creatinine Ratio 16 % 02/04/22 05:19 Glucose 95 mg/dL (65-100) 02/04/22 05:19 Calcium 8.7 mg/dL (8.4-10.2) 02/04/22 05:19 Phosphorus 3.90 mg/dL (2.5-4.5) 02/03/22 04:33 Magnesium 1.70 mg/dL (1.7-2.3) 02/03/22 04:33 Total Bilirubin 0.90 mg/dL (0.1-1.2) 02/01/22 14:02 AST 65 units/L (5-40) H 02/01/22 14:02 ALT 76 units/L (7-56) H 02/01/22 14:02 Alkaline Phosphatase 119 units/L (35-129) 02/01/22 14:02 Troponin T < 0.010 ng/mL (0.00-0.029) 02/01/22 14:02 NT-Pro-B Natriuret Pep 4482 pg/mL (0-900) H 02/01/22 14:02 Total Protein 5.7 g/dL (6.3-8.2) L 02/01/22 14:02 Albumin 3.2 g/dL (3.9-5) L 02/01/22 14:02 Albumin/Globulin Ratio 1.3 % 02/01/22 14:02 PTH Intact 177.9 pg/mL (15-65) H 02/04/22 05:19 Urine Color Straw (Yellow) 02/04/22 11:56 Urine Turbidity Clear (Clear) 02/04/22 11:56 Urine pH 9.0 (5.0-7.0) H 02/04/22 11:56 Ur Specific [place] 1.008 (1.003-1.030) 02/04/22 11:56 Urine Protein 30 mg/dl mg/dL (Negative) 02/04/22 11:56 Urine Glucose (UA) Neg mg/dL (Negative) 02/04/22 11:56 Urine Ketones Neg mg/dL (Negative) 02/04/22 11:56 Urine Blood Neg (Negative) 02/04/22 11:56 Urine Nitrite Neg (Negative) 02/04/22 11:56 Urine Bilirubin Neg (Negative) 02/04/22 11:56 Urine Urobilinogen < 2.0 mg/dL (<2.0) 02/04/22 11:56 Ur Leukocyte Esterase Sm (Negative) 02/04/22 11:56 Urine WBC (Auto) 5.0 /HPF (0.0-6.0) 02/04/22 11:56 Urine RBC (Auto) 2.0 /HPF (0.0-6.0) 02/04/22 11:56 U Epithel Cells (Auto) 1.0 /HPF (0-13.0) 02/04/22 11:56 Urine Bacteria (Auto) 1+ /HPF (Negative) 02/04/22 11:56 Hauser/IV: Voiding Method Toilet Active Medications - Current Medications Current Medications: Generic Name Dose Route Start Last Admin Trade Name Freq PRN Reason Stop Dose Admin Acetaminophen 650 mg 02/01/22 16:41 Acetaminophen 325 Mg Tab PO Q4H PRN Pain MILD(1-3)/Fever >100.5/PARKER Albuterol 2.5 mg 02/01/22 16:41 Albuterol 2.5 Mg/3 Ml Nebu IH Q4HRT PRN Shortness Of Breath Docusate Sodium 100 mg 02/01/22 16:43 Docusate Sodium 100 Mg Cap PO BID PRN Constipation Ferrous Sulfate 325 mg 02/02/22 10:00 02/04/22 09:09 Ferrous Sulfate 325 Mg Tab PO 325 mg QDAY ASHLY Administration Folic Acid 1 mg 02/04/22 10:00 02/04/22 09:10 Folic Acid 1 Mg Tab PO 1 mg QDAY ASHLY Administration Furosemide 20 mg 02/04/22 06:00 02/04/22 05:24 Furosemide 20 Mg/2 Ml Inj IV 20 mg 0600,1800 ASHLY Administration Hydralazine HCl 50 mg 02/02/22 14:00 02/04/22 05:25 Hydralazine 25 Mg Tab PO 50 mg Q8HR ASHLY Administration Hydromorphone HCl 0.5 mg 02/01/22 16:41 02/01/22 23:14 Hydromorphone 1 Mg/1 Ml Inj IV 0.5 mg Q13H PRN Administration Pain , Severe (7-10) Labetalol HCl 100 mg 02/03/22 22:00 02/04/22 05:24 Labetalol 100 Mg Tab PO 100 mg Q8HR ASHLY Administration Nifedipine 30 mg 02/03/22 22:00 02/04/22 09:10 Nifedipine Xl 30 Mg Tab PO 30 mg Q12HR ASHLY Administration Ondansetron HCl 4 mg 02/01/22 16:41 Ondansetron 4 Mg/2 Ml Inj IV Q8H PRN Nausea And Vomiting Oxycodone/Acetaminophen 1 tab 02/01/22 16:41 02/02/22 08:27 Oxycodone /Acetaminophen 5-325mg Tab PO 1 tab Q6H PRN Administration Pain, Moderate (4-6) Sodium Chloride 10 ml 02/01/22 22:00 02/03/22 21:56 Sodium Chloride 0.9% 10 Ml Flush Syringe IV 10 ml BID ASHLY Administration Sodium Chloride 10 ml 02/01/22 16:41 Sodium Chloride 0.9% 10 Ml Flush Syringe IV PRN PRN LINE FLUSH Valsartan 160 mg 02/02/22 07:00 02/04/22 09:09 Valsartan 160mg Tab PO 160 mg DAILY ASHLY Administration
--- NOTE | 2022-02-04 14:24 | Progress Note ---
Assessment and Plan - Patient Problems (1) Heart failure with preserved ejection fraction Current Visit: Yes Status: Acute Plan to address problem: She was admitted for further evaluation of bilateral lower extremity edema and fluid overload. This was in association with chronic severe uncontrolled hypertension. Echocardiogram shows left ventricular systolic function at the lower limits of normal with ejection fraction 50 to 55%, with moderate to severe, concentric left ventricle hypertrophy. Diuretics and additional aggressive blood pressure management, followed by predischarge thallium stress test. Subjective Date of service: 02/04/22 Principal diagnosis: Bilateral lower extremity edema, uncontrolled hypertension Interval history: The patient looks and feels better, no chest pain, no shortness of breath, and lower extremity edema is improving. She was admitted for further evaluation of bilateral lower extremity edema and fluid overload. This was in association with chronic severe uncontrolled hypertension. Echocardiogram shows left ventricular systolic function at the lower limits of normal with ejection fraction 50 to 55%, with moderate to severe, concentric left ventricle hypertrophy. Objective Vital Signs Temp Pulse Resp BP BP Pulse Ox 02/04/22 14:19 155/94 02/04/22 09:20 97 02/04/22 08:50 98.6 F 85 18 156/94 100 02/04/22 05:31 98.3 F 89 16 171/115 96 02/04/22 05:25 88 155/111 02/04/22 05:24 88 155/111 02/04/22 00:40 98.0 F 88 16 155/111 95 02/04/22 00:00 88 96 02/03/22 22:00 95 02/03/22 21:17 88 178/130 02/03/22 21:16 88 178/130 02/03/22 20:57 97.2 F L 88 12 178/130 96 02/03/22 18:56 98.6 F 87 18 168/117 95 - Physical Examination General: No Apparent Distress, Other (obese) HEENT: Positive: PERRL Neck: Positive: JVD/HJR Cardiac: Positive: Reg Rate and Rhythm Lungs: Positive: Decreased Breath Sounds Neuro: Positive: Grossly Intact Abdomen: Positive: Soft Skin: Positive: Clear Extremities: Present: +1 Edema - Labs and Meds Comprehensive Metabolic Panel 02/03/22 02/04/22 Range/Units 19:43 05:19 Sodium 142 142 (137-145) mmol/L Potassium 3.6 D 3.6 (3.6-5.0) mmol/L Chloride 100.0 101.7 (98-107) mmol/L Carbon Dioxide 31 H 28 (22-30) mmol/L BUN 24 H 21 H (7-17) mg/dL Creatinine 1.4 H 1.3 H (0.6-1.2) mg/dL Glucose 104 H 95 (65-100) mg/dL Calcium 8.6 8.7 (8.4-10.2) mg/dL
[2022-02-04 14:27] LABS: Creatinine,Urine 38.4 mg/dL (0.1-20.0); Protein/Creatinine Ratio,Urine 0.7
[2022-02-04] MEDS ORDERED: NIFEdipine XL 60 MG TAB PO SCH (16:00)
--- NOTE | 2022-02-04 17:57 | Progress Note ---
Assessment and Plan 1. Acute kidney injury vs CKD: ERNESTO in the setting of CHF. Baseline renal function is unknown. Renal US negative for hydro. Monitor renal function. Creatinine level is improving. Avoid nephrotoxic agents. Meds dosage based on GFR. 2. FEN: Metabolic alkalosis, monitor. Volume overload, IV Lasix, monitor. Monitor lytes and volume status. 3. Decompensated HFpEF: Echo; normal EF. Pulmonary HTN. Followed by Cards. 4. Acute hypoxic respiratory failure, POA: Supplemental O2 as needed. Monitor. 5. Elevated ALT / AST: Monitor. 6. Hypertension. 7. Non-Hodgkin's lymphoma. Subjective: Patient was seen and examined at the bedside. Examination: General appearance: well-developed, appears stated age, obese, no distress HEENT: atraumatic, pupils reacting to light Neck: trachea midline Respiratory: ctab Heart: S1S2, regular, no murmur Abdomen: soft, bowel sounds heard, NT Integumentary: no obvious rash Neurologic: AO, able to move extremities Ext: 1 to 2+ LE edema noted Subjective Date of service: 02/04/22 Principal diagnosis: Bilateral lower extremity edema, uncontrolled hypertension Objective - Vital Signs Vital signs: Vital Signs - 12hr 02/04/22 02/04/22 02/04/22 08:50 09:20 12:00 Temperature 98.6 F Pulse Rate 85 Respiratory 18 Rate Blood Pressure 156/94 Blood Pressure [Right] O2 Sat by Pulse 100 97 96 Oximetry 02/04/22 02/04/22 14:19 15:13 Temperature 97.9 F Pulse Rate 85 Respiratory 18 Rate Blood Pressure 146/98 Blood Pressure 155/94 [Right] O2 Sat by Pulse 96 Oximetry - Lab 02/01/22 14:02 02/06/22 05:59 Most recent lab results Calcium 8.7 mg/dL (8.4-10.2) 02/04/22 05:19 Phosphorus 3.90 mg/dL (2.5-4.5) 02/03/22 04:33 Magnesium 1.70 mg/dL (1.7-2.3) 02/03/22 04:33 Urine Creatinine 38.4 mg/dL (0.1-20.0) H 02/04/22 Unknown Urine Total Protein 27 mg/dL (5-11.8) H 02/04/22 Unknown Medications & Allergies - Medications Allergies/Adverse Reactions: Allergies No Known Allergies Allergy (Verified 02/04/22 11:48) Home Medications: Home Medications Medication Instructions Recorded Confirmed Last Taken Type Ferrous Sulfate [Iron 325 MG] 325 mg PO QDAY 02/04/22 02/04/22 Unknown History Aspirin EC [Halfprin EC] 81 mg PO QDAY 30 Days #30 tablet 02/06/22 Unknown Rx Furosemide [Lasix] 40 mg PO QDAY 40 Days #40 tab 02/06/22 Unknown Rx NIFEdipine XL [Procardia Xl] 90 mg PO QDAY 30 Days #30 tablet 02/06/22 Unknown Rx Valsartan [Diovan] 160 mg PO BID 30 Days #60 tablet 02/06/22 Unknown Rx carvediloL [Coreg] 12.5 mg PO BID 30 Days #60 tablet 02/06/22 Unknown Rx hydrALAZINE [Apresoline TAB] 50 mg PO Q8HR 30 Days #90 tablet 02/06/22 Unknown Rx Active Medications: Generic Name Dose Route Start Last Admin Trade Name Freq PRN Reason Stop Dose Admin Acetaminophen 650 mg 02/01/22 16:41 Acetaminophen 325 Mg Tab PO Q4H PRN Pain MILD(1-3)/Fever >100.5/PARKER Albuterol 2.5 mg 02/01/22 16:41 Albuterol 2.5 Mg/3 Ml Nebu IH Q4HRT PRN Shortness Of Breath Aspirin 81 mg 02/04/22 16:00 Aspirin Ec 81 Mg Tab PO QDAY ASHLY Docusate Sodium 100 mg 02/01/22 16:43 Docusate Sodium 100 Mg Cap PO BID PRN Constipation Ferrous Sulfate 325 mg 02/02/22 10:00 02/04/22 09:09 Ferrous Sulfate 325 Mg Tab PO 325 mg QDAY ASHLY Administration Folic Acid 1 mg 02/04/22 10:00 02/04/22 09:10 Folic Acid 1 Mg Tab PO 1 mg QDAY ASHLY Administration Furosemide 40 mg 02/04/22 15:00 Furosemide 40 Mg/4 Ml Inj IV QDAY ASHLY Hydralazine HCl 50 mg 02/02/22 14:00 02/04/22 14:17 Hydralazine 25 Mg Tab PO 50 mg Q8HR ASHLY Administration Hydromorphone HCl 0.5 mg 02/01/22 16:41 02/01/22 23:14 Hydromorphone 1 Mg/1 Ml Inj IV 0.5 mg Q13H PRN Administration Pain , Severe (7-10) Nifedipine 60 mg 02/04/22 16:00 Nifedipine Xl 60 Mg Tab PO QDAY ASHLY Oxycodone/Acetaminophen 1 tab 02/01/22 16:41 02/02/22 08:27 Oxycodone /Acetaminophen 5-325mg Tab PO 1 tab Q6H PRN Administration Pain, Moderate (4-6) Sodium Chloride 10 ml 02/01/22 22:00 02/03/22 21:56 Sodium Chloride 0.9% 10 Ml Flush Syringe IV 10 ml BID ASHLY Administration Sodium Chloride 10 ml 02/01/22 16:41 Sodium Chloride 0.9% 10 Ml Flush Syringe IV PRN PRN LINE FLUSH Valsartan 160 mg 02/04/22 22:00 Valsartan 160mg Tab PO BID ASHLY
[2022-02-04] MEDS: FUROSEMIDE 40 MG/4 ML INJ IV SCH (18:03)
[2022-02-04] MEDS: ASPIRIN EC 81 MG TAB PO SCH (18:04)
[2022-02-05] MEDS: oxyCODONE /ACETAMINOPHEN 5-325MG TAB PO PRN (01:49)
[2022-02-05] MEDS: hydrALAZINE 25 MG TAB PO SCH ×3 (06:32→21:56)
[2022-02-05] MEDS ORDERED: NIFEdipine XL 60 MG TAB PO SCH (07:44)
--- NOTE | 2022-02-05 07:48 | Progress Note ---
Assessment and Plan Assessment and plan: 51 YO Female with HTN, CHF, Hodgkins Disease, Anemia of Chronic Disease presents ED for evaluation of dyspnea and lower extremity edema x2 weeks. Patient reported orthopnea, PND and decreased exercise tolerance. The patient had a new diagnosis of CHF January 01 of this year and states that she has been compliant with her medications but not with her diet. Patient reported eating various fast foods. The patient reports that she was to have her first appointment with [facility] for next month. The patient was admitted with diagnosis below: Hospital Course: 02/02/2022. Continue antihypertensive medications for blood pressure control. Continue hydralazine for afterload reduction. Continue IV Lasix twice daily per cardiology recommendations. Patient with a baseline creatinine of 0.10 September 2020. We will consult nephrology to aid in volume control and assist with acute kidney injury 02/03/2022. We will add Procardia for accelerated hypertension. Continue GDMT for heart failure. Await nephrology recommendations. 02/04/2022. Patient still with 23+ lower extremity pitting edema. Echocardiogram this hospitalization reveals left ventricular systolic function low normal with mild concentric left ventricular hypertrophy. LVEF 50-55%. Patient also has right ventricular systolic pressure of 59 mmHg. There is moderate to severe pulmonary hypertension. Continue GDMT for heart failure per cardiology recommendations. Renal ultrasound essentially unremarkable 02/05/2022: Appears to be at baseline. Added Coreg 12.5 twice daily and increased dose of Procardia XL to 90 mg daily for improved blood pressure control. LE edema still present but improved. Will follow NM stress test and discuss results with cardiology. Possible discharge this afternoon. She will require close cardiac follow-up as an outpatient Assessment and Plan: Acute hypoxic respiratory failure Acute diastolic heart failure, ejection fraction 50 to 55%. RVSP 59 mmHg Moderate to severe pulmonary hypertension. Moderate to severe pulmonary hypertension noted on echocardiogram Obesity hypoventilation syndrome, elevated BMI Stage IIIa chronic kidney disease Anemia Hypertensive urgency Essential hypertension Hodgkin's lymphoma Morbid obesity History Interval history: No new or overnight issues. Hospitalist Physical - Physical exam Narrative exam: General appearance: Present: no acute distress - EENT Eyes: Present: PERRL, EOM intact ENT: hearing intact, clear oral mucosa, dentition normal - Neck Neck: Present: supple, normal ROM - Respiratory Respiratory effort: normal Respiratory: bilateral: CTA - Cardiovascular Rhythm: regular Heart Sounds: Present: S1 & S2. Absent: gallop, rub - Extremities Extremities: no ischemia, No edema, Full ROM - Abdominal General gastrointestinal: soft, non-tender, non-distended, normal bowel sounds - Integumentary Integumentary: Present: clear, warm, dry - Neurologic Neurologic: CNII-XII intact, moves all extremities - Constitutional Vitals: Temp Pulse Resp BP Pulse Ox 97.5 F L 86 17 145/94 99 02/05/22 07:27 02/05/22 07:27 02/05/22 07:27 02/05/22 07:27 02/05/22 07:27 General appearance: Present: no acute distress HEART Score - HEART Score Troponin: Troponin T < 0.010 ng/mL (0.00-0.029) 02/01/22 14:02 Results - Labs CBC & Chem 7: 02/01/22 14:02 02/04/22 05:19 Labs: Laboratory Last Values WBC 6.3 K/mm3 (4.5-11.0) 02/01/22 14:02 RBC 5.01 M/mm3 (3.65-5.03) 02/01/22 14:02 Hgb 11.9 gm/dl (10.1-14.3) 02/01/22 14:02 Hct 39.4 % (30.3-42.9) 02/01/22 14:02 MCV 79 fl (79-97) 02/01/22 14:02 MCH 24 pg (28-32) L 02/01/22 14:02 MCHC 30 % (30-34) 02/01/22 14:02 RDW 22.4 % (13.2-15.2) H 02/01/22 14:02 Plt Count 220 K/mm3 (140-440) 02/01/22 14:02 Lymph % (Auto) 26.0 % (13.4-35.0) 02/01/22 14:02 [place] % (Auto) 12.4 % (0.0-7.3) H 02/01/22 14:02 Eos % (Auto) 1.9 % (0.0-4.3) 02/01/22 14:02 Baso % (Auto) 1.9 % (0.0-1.8) H 02/01/22 14:02 Lymph # (Auto) 1.6 K/mm3 (1.2-5.4) 02/01/22 14:02 [place] # (Auto) 0.8 K/mm3 (0.0-0.8) 02/01/22 14:02 Eos # (Auto) 0.1 K/mm3 (0.0-0.4) 02/01/22 14:02 Baso # (Auto) 0.1 K/mm3 (0.0-0.1) 02/01/22 14:02 Seg Neutrophils % 57.8 % (40.0-70.0) 02/01/22 14:02 Seg Neutrophils # 3.6 K/mm3 (1.8-7.7) 02/01/22 14:02 Sodium 142 mmol/L (137-145) 02/04/22 05:19 Potassium 3.6 mmol/L (3.6-5.0) 02/04/22 05:19 Chloride 101.7 mmol/L (98-107) 02/04/22 05:19 Carbon Dioxide 28 mmol/L (22-30) 02/04/22 05:19 Anion Gap 16 mmol/L 02/04/22 05:19 BUN 21 mg/dL (7-17) H 02/04/22 05:19 Creatinine 1.3 mg/dL (0.6-1.2) H 02/04/22 05:19 Estimated GFR 52 ml/min 02/04/22 05:19 BUN/Creatinine Ratio 16 % 02/04/22 05:19 Glucose 95 mg/dL (65-100) 02/04/22 05:19 Calcium 8.7 mg/dL (8.4-10.2) 02/04/22 05:19 Phosphorus 3.90 mg/dL (2.5-4.5) 02/03/22 04:33 Magnesium 1.70 mg/dL (1.7-2.3) 02/03/22 04:33 Total Bilirubin 0.90 mg/dL (0.1-1.2) 02/01/22 14:02 AST 65 units/L (5-40) H 02/01/22 14:02 ALT 76 units/L (7-56) H 02/01/22 14:02 Alkaline Phosphatase 119 units/L (35-129) 02/01/22 14:02 Troponin T < 0.010 ng/mL (0.00-0.029) 02/01/22 14:02 NT-Pro-B Natriuret Pep 4482 pg/mL (0-900) H 02/01/22 14:02 Total Protein 5.7 g/dL (6.3-8.2) L 02/01/22 14:02 Albumin 3.2 g/dL (3.9-5) L 02/01/22 14:02 Albumin/Globulin Ratio 1.3 % 02/01/22 14:02 PTH Intact 177.9 pg/mL (15-65) H 02/04/22 05:19 Urine Color Straw (Yellow) 02/04/22 11:56 Urine Turbidity Clear (Clear) 02/04/22 11:56 Urine pH 9.0 (5.0-7.0) H 02/04/22 11:56 Ur Specific [place] 1.008 (1.003-1.030) 02/04/22 11:56 Urine Protein 30 mg/dl mg/dL (Negative) 02/04/22 11:56 Urine Glucose (UA) Neg mg/dL (Negative) 02/04/22 11:56 Urine Ketones Neg mg/dL (Negative) 02/04/22 11:56 Urine Blood Neg (Negative) 02/04/22 11:56 Urine Nitrite Neg (Negative) 02/04/22 11:56 Urine Bilirubin Neg (Negative) 02/04/22 11:56 Urine Urobilinogen < 2.0 mg/dL (<2.0) 02/04/22 11:56 Ur Leukocyte Esterase Sm (Negative) 02/04/22 11:56 Urine WBC (Auto) 5.0 /HPF (0.0-6.0) 02/04/22 11:56 Urine RBC (Auto) 2.0 /HPF (0.0-6.0) 02/04/22 11:56 U Epithel Cells (Auto) 1.0 /HPF (0-13.0) 02/04/22 11:56 Urine Bacteria (Auto) 1+ /HPF (Negative) 02/04/22 11:56 Urine Creatinine 38.4 mg/dL (0.1-20.0) H 02/04/22 Unknown Protein/Creatinin Ratio 0.70 02/04/22 Unknown Urine Total Protein 27 mg/dL (5-11.8) H 02/04/22 Unknown Hauser/IV: Voiding Method Toilet Active Medications - Current Medications Current Medications: Generic Name Dose Route Start Last Admin Trade Name Freq PRN Reason Stop Dose Admin Acetaminophen 650 mg 02/01/22 16:41 Acetaminophen 325 Mg Tab PO Q4H PRN Pain MILD(1-3)/Fever >100.5/PARKER Albuterol 2.5 mg 02/01/22 16:41 Albuterol 2.5 Mg/3 Ml Nebu IH Q4HRT PRN Shortness Of Breath Aspirin 81 mg 02/04/22 16:00 02/04/22 18:04 Aspirin Ec 81 Mg Tab PO 81 mg QDAY ASHLY Administration Docusate Sodium 100 mg 02/01/22 16:43 Docusate Sodium 100 Mg Cap PO BID PRN Constipation Ferrous Sulfate 325 mg 02/02/22 10:00 02/04/22 09:09 Ferrous Sulfate 325 Mg Tab PO 325 mg QDAY ASHLY Administration Folic Acid 1 mg 02/04/22 10:00 02/04/22 09:10 Folic Acid 1 Mg Tab PO 1 mg QDAY ASHLY Administration Furosemide 40 mg 02/04/22 15:00 02/04/22 18:03 Furosemide 40 Mg/4 Ml Inj IV 40 mg QDAY ASHLY Administration Hydralazine HCl 50 mg 02/02/22 14:00 02/05/22 06:32 Hydralazine 25 Mg Tab PO 50 mg Q8HR ASHLY Administration Hydromorphone HCl 0.5 mg 02/01/22 16:41 02/01/22 23:14 Hydromorphone 1 Mg/1 Ml Inj IV 0.5 mg Q13H PRN Administration Pain , Severe (7-10) Nifedipine 60 mg 02/04/22 16:00 02/04/22 18:04 Nifedipine Xl 60 Mg Tab PO 60 mg QDAY ASHLY Administration Oxycodone/Acetaminophen 1 tab 02/01/22 16:41 02/05/22 01:49 Oxycodone /Acetaminophen 5-325mg Tab PO 1 tab Q6H PRN Administration Pain, Moderate (4-6) Sodium Chloride 10 ml 02/01/22 22:00 02/04/22 22:49 Sodium Chloride 0.9% 10 Ml Flush Syringe IV 10 ml BID ASHLY Administration Sodium Chloride 10 ml 02/01/22 16:41 Sodium Chloride 0.9% 10 Ml Flush Syringe IV PRN PRN LINE FLUSH Valsartan 160 mg 02/04/22 22:00 02/04/22 22:48 Valsartan 160mg Tab PO 160 mg BID ASHLY Administration
--- NOTE | 2022-02-05 07:56 | Progress Note ---
Assessment and Plan 1. Acute kidney injury vs CKD: ERNESTO in the setting of CHF. Baseline renal function is unknown. Urine studies and Renal US. Monitor renal function. Creatinine level improving. Avoid nephrotoxic agents. Meds dosage based on GFR. 2. FEN: Metabolic alkalosis, improved, monitor. Volume overload, IV Lasix, monitor. Monitor lytes and volume status. 3. Decompensated HFpEF: Echo; normal EF. Pulmonary HTN. Followed by Cards. 4. Acute hypoxic respiratory failure, POA: NC O2. Monitor. 5. Elevated ALT / AST: Monitor. 6. Hypertension. 7. Non-Hodgkin's lymphoma. Subjective: Patient was seen and examined at the bedside. Doing better. Examination: General appearance: well-developed, appears stated age, obese, no distress, on RA HEENT: atraumatic, pupils reacting to light Neck: trachea midline Respiratory: ctab Heart: S1S2, regular, no murmur Abdomen: soft, bowel sounds heard, NT Integumentary: no obvious rash Neurologic: AO, able to move extremities Ext: 1 to 2+ LE edema noted Subjective Date of service: 02/05/22 Principal diagnosis: Bilateral lower extremity edema, uncontrolled hypertension Objective - Vital Signs Vital signs: Vital Signs - 12hr 02/04/22 02/05/22 02/05/22 20:52 00:00 00:57 Temperature 97.8 F Pulse Rate 87 Respiratory 20 Rate Blood Pressure 141/86 O2 Sat by Pulse 96 96 94 Oximetry 02/05/22 02/05/22 04:36 07:27 Temperature 97.7 F 97.5 F L Pulse Rate 83 86 Respiratory 18 17 Rate Blood Pressure 151/99 145/94 O2 Sat by Pulse 94 99 Oximetry - Lab 02/01/22 14:02 02/06/22 05:59 Most recent lab results Calcium 8.7 mg/dL (8.4-10.2) 02/04/22 05:19 Phosphorus 3.90 mg/dL (2.5-4.5) 02/03/22 04:33 Magnesium 1.70 mg/dL (1.7-2.3) 02/03/22 04:33 Urine Creatinine 38.4 mg/dL (0.1-20.0) H 02/04/22 Unknown Urine Total Protein 27 mg/dL (5-11.8) H 02/04/22 Unknown Medications & Allergies - Medications Allergies/Adverse Reactions: Allergies No Known Allergies Allergy (Verified 02/04/22 11:48) Home Medications: Home Medications Medication Instructions Recorded Confirmed Last Taken Type Ferrous Sulfate [Iron 325 MG] 325 mg PO QDAY 02/04/22 02/04/22 Unknown History Aspirin EC [Halfprin EC] 81 mg PO QDAY 30 Days #30 tablet 02/06/22 Unknown Rx Furosemide [Lasix] 40 mg PO QDAY 40 Days #40 tab 02/06/22 Unknown Rx NIFEdipine XL [Procardia Xl] 90 mg PO QDAY 30 Days #30 tablet 02/06/22 Unknown Rx Valsartan [Diovan] 160 mg PO BID 30 Days #60 tablet 02/06/22 Unknown Rx carvediloL [Coreg] 12.5 mg PO BID 30 Days #60 tablet 02/06/22 Unknown Rx hydrALAZINE [Apresoline TAB] 50 mg PO Q8HR 30 Days #90 tablet 02/06/22 Unknown Rx Active Medications: Generic Name Dose Route Start Last Admin Trade Name Freq PRN Reason Stop Dose Admin Acetaminophen 650 mg 02/01/22 16:41 Acetaminophen 325 Mg Tab PO Q4H PRN Pain MILD(1-3)/Fever >100.5/PARKER Albuterol 2.5 mg 02/01/22 16:41 Albuterol 2.5 Mg/3 Ml Nebu IH Q4HRT PRN Shortness Of Breath Aspirin 81 mg 02/04/22 16:00 02/04/22 18:04 Aspirin Ec 81 Mg Tab PO 81 mg QDAY ASHLY Administration Carvedilol 12.5 mg 02/05/22 10:00 Carvedilol 12.5 Mg Tab PO BID ASHLY Docusate Sodium 100 mg 02/01/22 16:43 Docusate Sodium 100 Mg Cap PO BID PRN Constipation Ferrous Sulfate 325 mg 02/02/22 10:00 02/04/22 09:09 Ferrous Sulfate 325 Mg Tab PO 325 mg QDAY ASHLY Administration Folic Acid 1 mg 02/04/22 10:00 02/04/22 09:10 Folic Acid 1 Mg Tab PO 1 mg QDAY ASHLY Administration Furosemide 40 mg 02/04/22 15:00 02/04/22 18:03 Furosemide 40 Mg/4 Ml Inj IV 40 mg QDAY ASHLY Administration Hydralazine HCl 50 mg 02/02/22 14:00 02/05/22 06:32 Hydralazine 25 Mg Tab PO 50 mg Q8HR ASHLY Administration Hydromorphone HCl 0.5 mg 02/01/22 16:41 02/01/22 23:14 Hydromorphone 1 Mg/1 Ml Inj IV 0.5 mg Q13H PRN Administration Pain , Severe (7-10) Nifedipine 90 mg 02/05/22 07:44 Nifedipine Xl 60 Mg Tab PO QDAY ASHLY Oxycodone/Acetaminophen 1 tab 02/01/22 16:41 02/05/22 01:49 Oxycodone /Acetaminophen 5-325mg Tab PO 1 tab Q6H PRN Administration Pain, Moderate (4-6) Sodium Chloride 10 ml 02/01/22 22:00 02/04/22 22:49 Sodium Chloride 0.9% 10 Ml Flush Syringe IV 10 ml BID ASHLY Administration Sodium Chloride 10 ml 02/01/22 16:41 Sodium Chloride 0.9% 10 Ml Flush Syringe IV PRN PRN LINE FLUSH Valsartan 160 mg 02/04/22 22:00 02/04/22 22:48 Valsartan 160mg Tab PO 160 mg BID ASHLY Administration
[2022-02-05] MEDS ORDERED: REGADENOSON 0.4 MG/5 ML INJ IV ONE ×2 (08:26→08:28)
--- NOTE | 2022-02-05 10:46 | Progress Note ---
Assessment and Plan - Patient Problems (1) Heart failure with preserved ejection fraction Current Visit: Yes Status: Acute Plan to address problem: She was admitted for further evaluation of bilateral lower extremity edema and fluid overload. This was in association with chronic severe uncontrolled hypertension. Echocardiogram shows left ventricular systolic function at the lower limits of normal with ejection fraction 50 to 55%, with moderate to severe, concentric left ventricle hypertrophy. Diuretics and additional aggressive blood pressure management. Completed predischarge thallium stress test, results pending. Subjective Date of service: 02/05/22 Principal diagnosis: Bilateral lower extremity edema, uncontrolled hypertension Interval history: Patient looks and feels better, no new cardiac complaints, blood pressure is better controlled on current regimen, presented today for a Lexiscan thallium stress test which was completed, final results are pending. Objective Vital Signs Temp Pulse Resp BP BP Pulse Ox 02/05/22 07:27 97.5 F L 86 17 145/94 99 02/05/22 04:36 97.7 F 83 18 151/99 94 02/05/22 00:57 97.8 F 87 20 141/86 94 02/05/22 00:00 96 02/04/22 20:52 96 02/04/22 19:06 98.0 F 93 H 20 131/63 95 02/04/22 15:13 97.9 F 85 18 146/98 96 02/04/22 14:19 155/94 02/04/22 12:00 96 - Physical Examination General: No Apparent Distress, Other (obese) HEENT: Positive: PERRL Neck: Positive: JVD/HJR Cardiac: Positive: Reg Rate and Rhythm Lungs: Positive: Decreased Breath Sounds Neuro: Positive: Grossly Intact Abdomen: Positive: Soft Skin: Positive: Clear Extremities: Present: edema (Trace to 1+)
--- NOTE | 2022-02-05 12:48 | Nuclear Medicine Report ---
APPROVED REPORT Exam: Nuclear Stress Test Indication: Chest pain Patient Location: [address] [place] [address] Room #: A465 Ht: 5 ft 10 in Wt: 240 lbs BSA: 2.26 m2 HR: 86 bpmBP: 163/117 mmHgBMI: 34.43 Rhythm: Sinus Rhythm Stress Test Details Stress Test: Pharmacologic stress testing performed using 0.4 mg of regadenoson per 5 mL given IV over 10 seconds. Reason for pharmacologic stress test: physical limitation. HR Resting HR: 86 bpm Max HR Achieved: 94 bpm Max Heart Rate (APMHR): 169 bpm Target HR (85% APMHR): 143 bpm % of APMHR: 55 Recovery HR: 85 bpm HR response to stress: Normal HR response to stress BP Resting BP: 151/94 mmHg Max BP: 163/117 mmHg Recovery BP: 153/103 mmHg ECG Resting ECG: Sinus Rhythm Stress ECG: Sinus Rhythm ST Change: None Arrhythmia: None Recovery ECG: Sinus Rhythm Recovery ST Change: None Recovery Arrhythmia: None, None Clinical Reason for Termination: Completed protocol Stress Symptoms: None Stress ECG Conclusion No chest pain and no ST changes of ischemia with pharmacologic stress, myocardial perfusion images are pending. NM EXAM: Myocardial Perfusion REST/STRESS Imaging Protocol: Rest Tc-99m/Stress Tc-99m 1 day Resting Data Rest SPECT myocardial perfusion imaging was performed in supine position 45 minutes following the intravenous injection of 10 mCi of Tc-99m Myoview. Time of rest injection: 0745 Pharmacologic Stress Pharmacologic stress test was performed by injecting Regadenoson 0.4 mg IV push followed by the intravenous injection of 28 mCi of Tc-99m Myoview. Time of stress injection: 0959 Gated Stress SPECT was performed 30 minutes after stress injection. The images were gated to evaluate regional wall motion and calculate left ventricular ejection fraction. Study Quality Study: excellent Lung Uptake: Normal Study Data TID = 1.01. Perfusion Wall Motion There is borderline mild left ventricular dysfunction with ejection fraction calculated at 47%. Nuclear Conclusion ECG Findings: negative for ischemia Clinical Findings: negative for ischemia Nuclear Findings: negative for ischemia Left Ventricular Function: abnormal Risk Study: low Myocardial perfusion images show a small fixed anteroapical defect of mild intensity, consistent with breast attenuation artifact. There is no reversible ischemia demonstrated in the study. Left ventricular systolic function is calculated at 47% on gated SPECT analysis, recommend clinical correlation and echocardiographic reassessment of left ventricular function. Conclusion No chest pain and no ST changes of ischemia with pharmacologic stress, myocardial perfusion images are pending.
[2022-02-05] MEDS: carvediloL 12.5 MG TAB PO SCH ×2 (13:04→21:56)
[2022-02-05] MEDS: VALSARTAN 160MG TAB PO SCH ×2 (13:04→21:56)
[2022-02-05] MEDS: NIFEdipine XL 90 MG TAB PO SCH (13:04)
[2022-02-05] MEDS: ASPIRIN EC 81 MG TAB PO SCH (13:04)
[2022-02-05] MEDS: FERROUS SULFATE 325 MG TAB PO SCH (13:04)
[2022-02-05] MEDS: FOLIC ACID 1 MG TAB PO SCH (13:05)
[2022-02-05] MEDS: FUROSEMIDE 40 MG/4 ML INJ IV SCH (13:05)
[2022-02-06] MEDS: hydrALAZINE 25 MG TAB PO SCH ×2 (05:27→13:21)
[2022-02-06 06:43] LABS: BUN/Creatinine Ratio 13; Blood Urea Nitrogen 14 mg/dL (7-17); Calcium 9.1 mg/dL (8.4-10.2); Hemolysis Index 9
[2022-02-06] MEDS: VALSARTAN 160MG TAB PO SCH (09:51)
[2022-02-06] MEDS: ASPIRIN EC 81 MG TAB PO SCH (09:53)
[2022-02-06] MEDS: FERROUS SULFATE 325 MG TAB PO SCH (09:55)
[2022-02-06] MEDS: carvediloL 12.5 MG TAB PO SCH (09:55)
[2022-02-06] MEDS: FOLIC ACID 1 MG TAB PO SCH (09:57)
[2022-02-06] MEDS: FUROSEMIDE 40 MG/4 ML INJ IV SCH (10:00)
[2022-02-06] MEDS: NIFEdipine XL 90 MG TAB PO SCH (10:00)
--- NOTE | 2022-02-06 10:02 | Discharge Summary ---
Providers - Providers Date of Admission: 02/01/22 16:41 Date of discharge: 02/06/22 Attending physician: ROBBY MARIN MD 02/01/22 20:23 Consult to Cardiology [CONS] Routine Consulting Provider: ANNA SOUSA Reason For Exam: chf 02/02/22 11:38 Consult to Physician [CONS] Routine Comment: Consulting Provider: MARIAH ROTHMAN Physician Instructions: Reason For Exam: ERNESTO Primary care physician: ARNULFO REBOLLEDO Hospitalization Reason for admission: Shortness of breath Condition: Fair Hospital course: 1 YO Female with HTN, CHF, Hodgkins Disease, Anemia of Chronic Disease presents ED for evaluation of dyspnea and lower extremity edema x2 weeks. Patient reported orthopnea, PND and decreased exercise tolerance. The patient had a new diagnosis of CHF January 01 of this year and states that she has been compliant with her medications but not with her diet. Patient reported eating various fast foods. The patient reports that she was to have her first appointment with [facility] for next month. The patient was admitted with diagnosis below: Hospital Course: 02/02/2022. Continue antihypertensive medications for blood pressure control. Continue hydralazine for afterload reduction. Continue IV Lasix twice daily per cardiology recommendations. Patient with a baseline creatinine of 0.10 September 2020. We will consult nephrology to aid in volume control and assist with acute kidney injury 02/03/2022. We will add Procardia for accelerated hypertension. Continue GDMT for heart failure. Await nephrology recommendations. 02/04/2022. Patient still with 23+ lower extremity pitting edema. Echocardiogram this hospitalization reveals left ventricular systolic function low normal with mild concentric left ventricular hypertrophy. LVEF 50-55%. Patient also has right ventricular systolic pressure of 59 mmHg. There is moderate to severe pulmonary hypertension. Continue GDMT for heart failure per cardiology recommendations. Renal ultrasound essentially unremarkable 02/05/2022: Appears to be at baseline. Added Coreg 12.5 twice daily and increased dose of Procardia XL to 90 mg daily for improved blood pressure control. LE edema still present but improved. Will follow NM stress test and discuss results with cardiology. Possible discharge this afternoon. She will require close cardiac follow-up as an outpatient 02/06/2022: NM stress no ischemia noted. Will discharge home today. Will discharge home patient with prescription for aspirin, Coreg, Lasix, Procardia XL, hydralazine, valsartan. instructed to follow up with cardiology as an outpatient as well as her primary care doctor. Assessment and Plan: Acute hypoxic respiratory failure Acute diastolic heart failure, ejection fraction 50 to 55%. RVSP 59 mmHg Moderate to severe pulmonary hypertension. Moderate to severe pulmonary hypertension noted on echocardiogram Obesity hypoventilation syndrome, elevated BMI Stage IIIa chronic kidney disease Anemia Hypertensive urgency Essential hypertension Hodgkin's lymphoma Morbid obesity Disposition: HOME / SELF CARE / HOMELESS Final Discharge Diagnosis (Prints w/discharge instructions): Acute congestive heart failure exacerbation Time spent for discharge: 35 Core Measure Documentation - Palliative Care Palliative Care/ Comfort Measures: Not Applicable - Core Measures Any of the following diagnoses?: heart failure - Heart Failure Discharge Requirements BRENNA/ARB for LVSD if EF <40%: Yes Beta irma at discharge: Yes Exam - Physical Exam Narrative exam: General appearance: Present: no acute distress - EENT Eyes: Present: PERRL, EOM intact ENT: hearing intact, clear oral mucosa, dentition normal - Neck Neck: Present: supple, normal ROM - Respiratory Respiratory effort: normal Respiratory: bilateral: CTA - Cardiovascular Rhythm: regular Heart Sounds: Present: S1 & S2. Absent: gallop, rub - Extremities Extremities: no ischemia, No edema, Full ROM - Abdominal General gastrointestinal: soft, non-tender, non-distended, normal bowel sounds - Integumentary Integumentary: Present: clear, warm, dry - Neurologic Neurologic: CNII-XII intact, moves all extremities - Constitutional Vitals: Temp Pulse Resp BP Pulse Ox 97.3 F L 86 20 154/109 93 02/06/22 08:30 02/06/22 08:30 02/06/22 08:30 02/06/22 08:30 02/06/22 08:30 Plan Activity: no restrictions Diet: low salt Follow up with: ARNULFO REBOLLEDO MD [Primary Care Provider] - 3-5 Days Prescriptions: hydrALAZINE [Apresoline TAB] 50 mg PO Q8HR 30 Days #90 tablet carvediloL [Coreg] 12.5 mg PO BID 30 Days #60 tablet Valsartan [Diovan] 160 mg PO BID 30 Days #60 tablet Aspirin EC [Halfprin EC] 81 mg PO QDAY 30 Days #30 tablet Furosemide [Lasix] 40 mg PO QDAY 40 Days #40 tab NIFEdipine XL [Procardia Xl] 90 mg PO QDAY 30 Days #30 tablet
--- NOTE | 2022-02-06 11:06 | Progress Note ---
Assessment and Plan 1. Acute kidney injury vs CKD: ERNESTO in the setting of CHF. Baseline renal function is unknown. Renal US negative. Monitor renal function. Creatinine level improving. Avoid nephrotoxic agents. Meds dosage based on GFR. 2. FEN: Metabolic alkalosis, improved, monitor. Volume overload, IV Lasix, monitor. Monitor lytes and volume status. 3. Decompensated HFpEF: Echo; normal EF. Pulmonary HTN. Limit fluid and salt intake. Followed by Cards. 4. Acute hypoxic respiratory failure, POA: NC O2. Monitor. 5. Elevated ALT / AST: Monitor. 6. Hypertension. 7. Non-Hodgkin's lymphoma. F/u in 1-2 weeks. Subjective: Patient was seen and examined at the bedside. Doing better. Examination: General appearance: well-developed, appears stated age, obese, no distress, on RA HEENT: atraumatic, pupils reacting to light Neck: trachea midline Respiratory: ctab Heart: S1S2, regular, no murmur Abdomen: soft, bowel sounds heard, NT Integumentary: no obvious rash Neurologic: AO, able to move extremities Ext: 1 to 2+ LE edema noted Subjective Date of service: 02/06/22 Principal diagnosis: Bilateral lower extremity edema, uncontrolled hypertension Objective - Vital Signs Vital signs: Vital Signs - 12hr 02/06/22 02/06/22 02/06/22 03:58 06:00 08:30 Temperature 97.9 F 97.3 F L Pulse Rate 85 85 86 Respiratory 20 20 Rate Blood Pressure 156/100 154/109 O2 Sat by Pulse 94 93 Oximetry 02/06/22 02/06/22 09:51 09:55 Temperature Pulse Rate 92 H 92 H Respiratory Rate Blood Pressure 159/112 159/112 O2 Sat by Pulse Oximetry - Lab 02/01/22 14:02 02/06/22 05:59 Most recent lab results Calcium 9.1 mg/dL (8.4-10.2) 02/06/22 05:59 Phosphorus 3.90 mg/dL (2.5-4.5) 02/03/22 04:33 Magnesium 1.70 mg/dL (1.7-2.3) 02/03/22 04:33 Urine Creatinine 38.4 mg/dL (0.1-20.0) H 02/04/22 Unknown Urine Total Protein 27 mg/dL (5-11.8) H 02/04/22 Unknown Medications & Allergies - Medications Allergies/Adverse Reactions: Allergies No Known Allergies Allergy (Verified 02/04/22 11:48) Home Medications: Home Medications Medication Instructions Recorded Confirmed Last Taken Type Ferrous Sulfate [Iron 325 MG] 325 mg PO QDAY 02/04/22 02/04/22 Unknown History Aspirin EC [Halfprin EC] 81 mg PO QDAY 30 Days #30 tablet 02/06/22 Unknown Rx Furosemide [Lasix] 40 mg PO QDAY 40 Days #40 tab 02/06/22 Unknown Rx NIFEdipine XL [Procardia Xl] 90 mg PO QDAY 30 Days #30 tablet 02/06/22 Unknown Rx Valsartan [Diovan] 160 mg PO BID 30 Days #60 tablet 02/06/22 Unknown Rx carvediloL [Coreg] 12.5 mg PO BID 30 Days #60 tablet 02/06/22 Unknown Rx hydrALAZINE [Apresoline TAB] 50 mg PO Q8HR 30 Days #90 tablet 02/06/22 Unknown Rx Active Medications: Generic Name Dose Route Start Last Admin Trade Name Freq PRN Reason Stop Dose Admin Acetaminophen 650 mg 02/01/22 16:41 Acetaminophen 325 Mg Tab PO Q4H PRN Pain MILD(1-3)/Fever >100.5/PARKER Albuterol 2.5 mg 02/01/22 16:41 Albuterol 2.5 Mg/3 Ml Nebu IH Q4HRT PRN Shortness Of Breath Aspirin 81 mg 02/04/22 16:00 02/06/22 09:53 Aspirin Ec 81 Mg Tab PO 81 mg QDAY ASHLY Administration Carvedilol 12.5 mg 02/05/22 10:00 02/06/22 09:55 Carvedilol 12.5 Mg Tab PO 12.5 mg BID ASHLY Administration Docusate Sodium 100 mg 02/01/22 16:43 Docusate Sodium 100 Mg Cap PO BID PRN Constipation Ferrous Sulfate 325 mg 02/02/22 10:00 02/06/22 09:55 Ferrous Sulfate 325 Mg Tab PO 325 mg QDAY ASHLY Administration Folic Acid 1 mg 02/04/22 10:00 02/06/22 09:57 Folic Acid 1 Mg Tab PO 1 mg QDAY ASHLY Administration Furosemide 40 mg 02/04/22 15:00 02/06/22 10:00 Furosemide 40 Mg/4 Ml Inj IV 40 mg QDAY ASHLY Administration Hydralazine HCl 50 mg 02/02/22 14:00 02/06/22 05:27 Hydralazine 25 Mg Tab PO 50 mg Q8HR ASHLY Administration Hydromorphone HCl 0.5 mg 02/01/22 16:41 02/01/22 23:14 Hydromorphone 1 Mg/1 Ml Inj IV 0.5 mg Q13H PRN Administration Pain , Severe (7-10) Nifedipine 90 mg 02/05/22 10:00 02/06/22 10:00 Nifedipine Xl 90 Mg Tab PO 90 mg QDAY ASHLY Administration Oxycodone/Acetaminophen 1 tab 02/01/22 16:41 02/05/22 01:49 Oxycodone /Acetaminophen 5-325mg Tab PO 1 tab Q6H PRN Administration Pain, Moderate (4-6) Sodium Chloride 10 ml 02/01/22 22:00 02/06/22 10:02 Sodium Chloride 0.9% 10 Ml Flush Syringe IV 10 ml BID ASHLY Administration Sodium Chloride 10 ml 02/01/22 16:41 Sodium Chloride 0.9% 10 Ml Flush Syringe IV PRN PRN LINE FLUSH Valsartan 160 mg 02/04/22 22:00 02/06/22 09:51 Valsartan 160mg Tab PO 160 mg BID ASHLY Administration
[2022-02-06 13:22] VITALS: BP 145/76
--- NOTE | 2022-02-06 13:54 | Progress Note ---
Assessment and Plan - Patient Problems (1) Heart failure with preserved ejection fraction Current Visit: Yes Status: Acute Plan to address problem: She was admitted for further evaluation of bilateral lower extremity edema and fluid overload. This was in association with chronic severe uncontrolled hypertension. Echocardiogram shows left ventricular systolic function at the lower limits of normal with ejection fraction 50 to 55%, with moderate to severe, concentric left ventricle hypertrophy. Lexiscan thallium stress test was negative for ischemia. Stable for cardiac discharge on medical therapy. Subjective Date of service: 02/06/22 Principal diagnosis: Bilateral lower extremity edema, uncontrolled hypertension Interval history: Patient looks and feels better, no new cardiac complaints, blood pressure is better controlled on current regimen. Lexiscan thallium stress test done yesterday was negative for ischemia. Objective Vital Signs Temp Pulse Pulse Resp BP BP Pulse Ox 02/06/22 13:21 92 H 145/76 02/06/22 12:52 97.6 F 83 132/86 94 02/06/22 12:00 88 97 02/06/22 09:55 92 H 159/112 02/06/22 09:51 92 H 159/112 02/06/22 08:30 97.3 F L 86 20 154/109 93 02/06/22 06:00 85 02/06/22 03:58 97.9 F 85 20 156/100 94 02/05/22 22:57 88 97 02/05/22 22:44 97.5 F L 95 H 20 147/99 92 02/05/22 22:00 88 02/05/22 20:48 97.8 F 88 18 123/88 97 02/05/22 15:49 97.8 F 91 H 17 116/72 97 - Physical Examination General: No Apparent Distress, Other (obese) HEENT: Positive: PERRL Neck: Positive: neck supple Cardiac: Positive: Reg Rate and Rhythm Lungs: Positive: Decreased Breath Sounds Neuro: Positive: Grossly Intact Abdomen: Positive: Soft Skin: Positive: Clear Extremities: Absent: edema - Labs and Meds Comprehensive Metabolic Panel 02/06/22 Range/Units 05:59 Sodium 141 (137-145) mmol/L Potassium 3.6 (3.6-5.0) mmol/L Chloride 103.5 (98-107) mmol/L Carbon Dioxide 26 (22-30) mmol/L BUN 14 (7-17) mg/dL Creatinine 1.1 (0.6-1.2) mg/dL Glucose 92 (65-100) mg/dL Calcium 9.1 (8.4-10.2) mg/dL
== END 2022-02-06 20:26 | disposition home or self-care (01) | DRG 291 ==
LOC: ED 13:08 → 4A 16:41
PROVIDERS: ADMIT Internal Medicine; ATTEND Internal Medicine
PROC: 5A09357 Assistance with Respiratory Ventilation, Less than 24 Consecutive Hours, Continuous Positive Airway Pressure (ICD-10-PCS; principal; 2022-02-02)
DX: I13.0 Hypertensive heart and chronic kidney disease with heart failure and stage 1 through stage 4 chronic kidney disease, or unspecified chronic kidney disease (principal); J96.01 Acute respiratory failure with hypoxia; I50.33 Acute on chronic diastolic (congestive) heart failure; E66.2 Morbid (severe) obesity with alveolar hypoventilation; N17.9 Acute kidney failure, unspecified; E87.3 Alkalosis; I16.0 Hypertensive urgency; E87.6 Hypokalemia; I27.20 Pulmonary hypertension, unspecified; D63.8 Anemia in other chronic diseases classified elsewhere; N18.31 Chronic kidney disease, stage 3a; Z68.34 Body mass index [BMI] 34.0-34.9, adult; Z85.71 Personal history of Hodgkin lymphoma; Z90.710 Acquired absence of both cervix and uterus; Z83.3 Family history of diabetes mellitus; Z82.49 Family history of ischemic heart disease and other diseases of the circulatory system
CPT/HCPCS: 36415; 71046; 76770; 78452; 80048; 80053; 81001; 82570; 83735; 83880; 83970; 84100; 84156; 84484; 85025; 93005; 93017; 93306; 94760; G0378; A9502; C8929; J1170; J1940; J2785